=== PATIENT | female | born 1955 | race Caucasian/White ===

== ENCOUNTER 2018-04-01 16:43 | Emergency (ER) | payer SELFPAY ==
[2018-04-01 16:46] VITALS: BP 162/90; PULSE 88; RESP 17; TEMP 36.4; O2SAT 100; BMI 18.5
--- NOTE | 2018-04-01 17:32 | EKG12_ITS ---
Test Reason : DYSRHYTHMIA Blood Pressure : / mmHG Vent. Rate : 081 BPM Atrial Rate : 081 BPM P-R Int : 180 ms QRS Dur : 080 ms QT Int : 442 ms P-R-T Axes : 074 039 059 degrees QTc Int : 513 ms Normal sinus rhythm Prolonged QT Abnormal ECG Confirmed by RADHA KHALIL, ADIN ([id number]), editor in chief QUIANA SILVER ([id number] on 04/04/2018 2:37:02 PM Referred By: MARQUISE Confirmed By:ADIN GARCIA MD
--- NOTE | 2018-04-01 17:33 | ED.VISSUMM ---
- ER Visit Summary Date of Service: 04/01/18 Chief Complaint: Sinus congestion, hand numbness, legs feel wobbly History of Present Illness: The patient is a 62 F who presents with the above symptoms. She has had the symptoms for about a month. She states that she has had a lot of sinus congestion. She feels like she cannot take a deep breath through her nose. It gets better when she is in the air conditioning. Her legs feel wobbly when she tries to stand. She has some numbness in her hands that comes and goes. She tried Sayra, Xyzal and Zyrtec at home but it did not help. She denies fevers. She denies any drainage coming from her nose. No headache. No slurred speech. Physical Examination: Vital signs reviewed. HEENT exam shows swollen turbinates bilaterally. No sinus drainage. Heart is regular rate and rhythm without murmurs. Lungs are clear to auscultation. Abdomen is soft and nontender. Extremities reveal no edema. Skin exam normal. Neurologic exam normal. Test Results: Labs are unremarkable except for a sodium 133 and a creatinine of 1.52 Emergency Department Course and Treatment: The patient may have some sinusitis causing the symptoms. I will treat her with antibiotics and Mucinex D. I am unclear the etiology of her paresthesias. However, her neurologic exam is completely normal. She will follow up with her primary care physician. Treatment Plan: [] Disposition: Discharge Impression: Acute sinusitis This note was generated with Moonf[employer]e dictation software. It may contain incorrect words, spelling, and punctuation that were not noted in review of the chart prior to signing ED Disposition - Plan for ED Patient: Chief Complaint: Dizziness Referrals: Tushar Block MD [Primary Care Provider] -
[2018-04-01 18:07] LABS: Absolute Lymphocyte Count 1.59 X10^3/ul (0.83-4.51); Absolute Neutrophil Count 3.8 X10^3/uL (2.0-7.7); Basophil# 0.04 X10^3/uL; Basophil% 0.6 % (0-1); Eosinophil# 0.34 X10^3/uL; Eosinophils% 4.8 % (0-5); Hemoglobin 12.2 g/dl (12.0-15.0); Lymphocyte # 1.59 X10^3/ul (4.0); Lymphocyte % 22.3 % (19-41); Mean Corp Hgb Conc 34.9 g/gl (32-36); Mean Corpuscular Hgb 33.9 pg (27.0-32.0); Mean Corpuscular Volume 97.2 fL (81-99); Mean Platelet Vol. 9.3 fl (6.2-12.0); Monocyte# 1.34 X10^3/uL; Monocyte% 18.8 % (0-10); Neutrophil % 53.4 % (47-70); Platelet Count 403 K/mm3 (150-450); RBC Distribution Width CV 14.4 % (11.6-14.6); RBC Distribution Width SD 50.6 fl (35.1-43.9); White Blood Count 7.1 K/mm3 (4.4-11.0)
[2018-04-01 18:09] LABS: POSITIVE COUNT NO; POSITIVE DIFFERENTIAL NO; POSITIVE MORPHOLOGY NO
[2018-04-01 18:24] LABS: Anion Gap 9 (5-15); BUN 22 mg/dL (7-18); BUN/Creat Ratio 14.5 RATIO (10-20); Calcium,Total 9.2 mg/dL (8.5-10.1); Chloride 97 mmol/L (98-107); Creatinine, Serum 1.52 mg/dL (0.55-1.02); EST Glomerular Filtration Rate 37 mL/min (>60); Est Glom Filt Rate - Afr Amer 44 mL/min (>60); Estimated Creatinine Clearance 26.27 ml/min; Glucose 98 mg/dL (74-106); Potassium 3.6 mmol/L (3.5-5.1); Sodium Level 133 mmol/L (136-145)
--- NOTE | 2018-04-01 18:37 | ED.DEP ---
ED Disposition - Plan for ED Patient: Disposition: Home or Assisted Living Chief Complaint: Dizziness Instructions: ED Sinusitis Abx Tx Prescriptions: Amox/Clavulanate Tablet [Augmentin Tablet] 875 mg PO Q12H #20 tab Guaifenesin/Pseudoephedrne HCl [Mucinex D ER 1,200-120 mg Tab] 1 ea PO BID #14 [id number] Referrals: Tushar Block MD [Primary Care Provider] -
[2018-04-01] MEDS: Amox/Clavulanate 875 MG Tablet PO (18:44)
== END 2018-04-01 18:47 | disposition home or self-care (01) ==
PROVIDERS: Emergency Provider Emergency Medicine; Family Provider Family Medicine; PCP Family Medicine
DX: J01.90 Acute sinusitis, unspecified (principal); I25.10 Atherosclerotic heart disease of native coronary artery without angina pectoris; I25.2 Old myocardial infarction; G40.909 Epilepsy, unspecified, not intractable, without status epilepticus; Z79.82 Long term (current) use of aspirin; Z79.899 Other long term (current) drug therapy; Z72.0 Tobacco use
CPT/HCPCS: 80048; 85025; 93005; 99283

== ENCOUNTER 2019-07-01 13:14 | Observation (INO) | payer MEDICARE, SELFPAY ==
[2019-07-01] VITALS (9 sets, daily range): BP systolic 121–149; BP diastolic 77–109; PULSE 61–80; RESP 16–18; TEMP 36.6–36.8; O2SAT 96–98; BMI 15.5; BMI 16.3; BMI 16.4
--- NOTE | 2019-07-01 13:35 | EKG12_ITS ---
Test Reason : WEAKNESS Blood Pressure : / mmHG Vent. Rate : 069 BPM Atrial Rate : 069 BPM P-R Int : 170 ms QRS Dur : 068 ms QT Int : 476 ms P-R-T Axes : 082 066 076 degrees QTc Int : 510 ms Normal sinus rhythm Right atrial enlargement Septal infarct , age undetermined Prolonged QT Abnormal ECG Confirmed by RYAN KHALIL, CELESTINE ([id number]), brands editor ABHISHEK ASIF ([id number]) on 07/02/2019 12:10:03 PM Referred By: MR Confirmed By:CELESTINE DAVIS MD
[2019-07-01] MEDS: Aspirin 81 MG TAB.CHEW 324 MG PO (13:53)
--- NOTE | 2019-07-01 13:55 | RAD_ITS ---
STUDY: X-RAY CHEST REASON FOR EXAM: Female, 64 years old. Chest pain. TECHNIQUE: PA and lateral views of the chest. COMPARISON: None. FINDINGS: EKG electrodes are seen. Hyperinflation. Decreased bronchovascular markings in both lungs suggestive of emphysematous changes. Blunting of both costophrenic angles. Normal size heart. Normal mediastinum and gregory. Normal visualized pulmonary arteries. Normal visualized aortic arch and descending thoracic aorta. Normal visualized thoracic spine. Normal visualized ribs, clavicles, and shoulders. There is no demonstrated abnormality of the visualized soft tissue structures of the upper abdomen. RAD/Chest PA and Lateral IMPRESSION: Hyperinflation. Findings suggestive of emphysema. Electronically Signed: Abbe Phillips, at 14:21 EDT , Service support ,
[2019-07-01 13:59] LABS: Absolute Neutrophil Count 4.3 X10^3/uL (2.0-7.7); Basophil# 0.07 X10^3/uL; Basophil% 0.9 % (0-1); Eosinophil# 0.19 X10^3/uL; Eosinophils% 2.5 % (0-5); Hematocrit 39.5 % (37-47); Hemoglobin 13.8 g/dL (12.0-15.0); Lymphocyte % 27.3 % (19-41); Mean Corp Hgb Conc 34.9 g/dL (32-36); Mean Corpuscular Hgb 33.8 pg (27.0-32.0); Mean Corpuscular Volume 96.8 fL (81-99); Mean Platelet Vol. 9.6 fl (6.2-12.0); Monocyte# 0.96 X10^3/uL; Monocyte% 12.5 % (0-10); NRBC Flagged by Analyzer 0 % (0-5); Neutrophil # 4.33 X10^3/uL (2.7-7.7); Neutrophil % 56.4 % (47-70); Platelet Count 412 K/mm3 (150-450); RBC Distribution Width CV 14.5 % (11.6-14.6); RBC Distribution Width SD 51.4 fl (35.1-43.9); Red Blood Count 4.08 M/mm3 (4.2-5.4); White Blood Count 7.7 K/mm3 (4.4-11.0)
[2019-07-01 14:12] LABS: AST(SGOT) 43 U/L (15-37); Alanine Aminotransfer ALT/SGPT 46 U/L (13-56); Albumin, Serum 4.1 g/dL (3.2-5.0); Alkaline Phosphatase 182 U/L (45-117); Bilirubin, Direct 0.11 mg/dL (0.00-0.30); Globulin 4.1 g/dL (2.2-4.2); Protein, Total 8.2 g/dL (6.4-8.2)
[2019-07-01 14:22] LABS: Anion Gap 6 (5-15); BUN 19 mg/dL (7-18); BUN/Creat Ratio 10.5 RATIO (10-20); Calcium,Total 9.2 mg/dL (8.5-10.1); Chloride 94 mmol/L (98-107); Creatinine, Serum 1.81 mg/dL (0.55-1.02); EST Glomerular Filtration Rate 30 mL/min (>60); Est Glom Filt Rate - Afr Amer 36 mL/min (>60); Estimated Creatinine Clearance 21.15 ml/min; Glucose 149 mg/dL (74-106); Potassium 3.2 mmol/L (3.5-5.1); Sodium Level 130 mmol/L (136-145); Thyroid Stim Hormone (TSH) 4.43 uIU/mL (0.358-3.74)
--- NOTE | 2019-07-01 15:00 | NURSING ---
VIDAU OBS YOSSI WRIGHT
--- NOTE | 2019-07-01 15:26 | ED.DCSUM_ITS ---
History of Present Illness Chief Complaint: Weakness Informant: Patient Narrative: Patient presenting for evaluation secondary to weakness and chest pain. Patient states that since yesterday she has been feeling generally ill. She reports that it is a feeling of general weakness, and inability to ambulate or tolerate any sort of activity. She reports my legs feel like Jell-O. She denies any visual changes or numbness. She denies any speech difficulty. She denies any recent fevers nausea vomiting diarrhea. Patient states that today however she was having issues with chest pain and shortness of breath. Patient does have an underlying history of smoking, and had a history of Takusubo back in 2013. Past Medical History - Allergies and Home Meds Allergies/Adverse Reactions: Allergies No Known Allergies Allergy (Verified 07/01/19 13:16) Past Medical History: - - Takusubo Smoking Status: Current every day smoker Review of Systems All systems negative except as indicated General: Reports: Malaise Cardiovascular: Reports: Chest pain Respiratory: Reports: Dyspnea Neurological: Reports: Weakness. Denies: Parasthesia, Numbness Physical Exam Vital Signs/Narrative: Vital Signs Temp Pulse Resp BP Pulse Ox 07/01/19 13:35 97 07/01/19 13:16 97.9 F 80 16 121/86 H 98 07/01/19 13:15 76 18 123/109 H 96 Inital Vital Signs reviewed: Yes General: Cachectic Head: Normocephalic, Atraumatic Eyes: Perrl, EOMI ENT: Moist mucous membranes, - - Pharyngeal changes Neck: Supple, Nontender Cardiovascular: Regular rate, Regular rhythm, No murmurs Respiratory: No distress, CTA bilaterally, Chest nontender Abdomen: Soft, Nontender, Nondistended, Normal bowel sounds Back: Nontender, Normal Inspection Extremities: Nontender, No edema Skin: Normal color, No rash Neurological: Alert, Oriented x3, Cranial nerves II-XII grossly intact, Normal Strength, Normal Sensation, - - NIH 0 Psychological: Normal affect Diagnostic/Tx/Re-eval Chest X-Ray - ED: 2 View, Read by ED Physician, Read by Radiologist, - - Hyperinflation, no evidence of acute pathology - EKG Initial EKG Interpretation: - - Sinus rhythm 69 with some right atrial enlargement, septal Q waves of unknown chronicity, prolonged QTC at 510. Isoelectric ST segments normal T waves. - Medical Decision Making Patient presented secondary to generalized weakness. She also endorsed that she was having chest pain, so work-up was obtained. Troponin found to be negative. EKG shows no signs of acute ischemia. Patient's TSH was trivially elevated. Patient's heart score is at the very least 4, I believe that she requires admission for cardiac rule out. Patient will be admitted on the hospitalist. ED Disposition - Plan for ED Patient: Disposition: Acute Care Hospital [facility] Diagnosis: Chest pain
--- NOTE | 2019-07-01 15:36 | EKG12_ITS ---
Test Reason : ADMISSION EKG Blood Pressure : / mmHG Vent. Rate : 060 BPM Atrial Rate : 060 BPM P-R Int : 150 ms QRS Dur : 076 ms QT Int : 502 ms P-R-T Axes : 066 041 068 degrees QTc Int : 502 ms Normal sinus rhythm Prolonged QT Abnormal ECG When compared with ECG of 01-APR-2018 17:37, No significant change was found Confirmed by KEVIN KHALIL, IVETTE ([id number]), advertising editor ABHISHEK ASIF ([id number]) on 07/08/2019 10:53:38 AM Referred By: KYLE Confirmed By:ROXANNA BROWN MD
--- NOTE | 2019-07-01 15:54 | PCM.HP.STD ---
Problem List (1) Seizure disorder Status: Chronic (2) HTN (hypertension) Status: Chronic (3) Tobacco dependence Status: Chronic (4) Takotsubo cardiomyopathy Status: Chronic History of Present Illness Date of Admission: 07/01/19 Chief Complaint: Shortness of breath, palpitations and lower extremity weakness. The patient is a 64 year old F who presents emergency room due to lower extremity weakness, shortness of breath and palpitations. Patient reports she was unusually tired and slept most of the day yesterday. She reports when she got up this morning her legs felt like Jell-O and she felt like they were going to give out on her upon standing. She then reports she suddenly developed palpitations and chest tightness with associated shortness of breath. At that time she called her primary care physician and states she had difficulty explaining her symptoms due to shortness of breath. She was advised to go to the emergency room for evaluation at that time. She denies unilateral weakness, speech changes, vision changes. She reports over the past 2 days she has had migraines which are chronic for her. She denies numbness and tingling of the extremities. She reports the shortness of breath and palpitations lasted for about 2 hours. She currently denies further lower extremity weakness although reports her symptoms are worse with standing. She has a past medical history of hypertension, hyperlipidemia, tobacco dependence, history of Takotsubo cardiomyopathy and history of seizures. She reports her last seizure was approximately 10 years ago or more. Past Medical History Past Medical History (Chronic Problems): Chronic Problems Seizure disorder (Chronic) HTN (hypertension) (Chronic) Tobacco dependence (Chronic) Takotsubo cardiomyopathy (Chronic) Allergies No Known Allergies Allergy (Verified 07/01/19 13:16) Home Medications: Ambulatory Orders Medication Instructions Recorded Aspirin [Aspirin, Baby] 81 mg PO DAILY@0800 05/05/14 Magnesium Oxide [Mag-Ox 400] 400 mg PO BID 05/05/14 Nitroglycerin (INPATIENT USE) 0.4 mg SUBLINGUAL Q5M PRN #20 05/05/14 [Nitrostat] tablet Amlodipine/Atorvast Valentin [Caduet 5 1 tab PO DAILY 04/01/18 MG-40 MG Tablet] Amitriptyline HCl 50 mg PO QHS 07/01/19 Calcium Citrate/Vitamin D3 1 tab PO BID 07/01/19 [Calcium Citrate - Vit D Caplet] Fluticasone Propionate 1 spray NASAL DAILY PRN PRN 07/01/19 Hydrochlorothiazide 12.5 mg PO DAILY 07/01/19 Metoprolol Succinate [Toprol Xl] 200 mg PO DAILY 07/01/19 Multivit-Min/Iron/Folic/Lutein 1 tab PO DAILY 07/01/19 [Centrum Silver Women Tablet] Phenytoin Na [Dilantin] 100 mg PO DAILY 07/01/19 Phenytoin Sodium Extended 30 mg PO BID 07/01/19 [Dilantin] Sertraline HCl [Zoloft] 50 mg PO DAILY 07/01/19 Surgical History: - - Partial hysterectomy, breast cyst removal. Lives: Spouse/ Significant Other Smoking Status: Current every day smoker Tobacco Use: Secondhand, Cigarettes Alcohol: None Drugs: None - *Family History Maternal History Items: Heart Disease, Stroke Paternal History Items: - - from suicide, unknown medical history including cardiac history. Review of Systems Constitutional: Reports: Weakness. Denies: Chills, Fever, Weight Change HEENT: Reports: Head Aches - Chronic migraines. Denies: Sinus Congestion, Sinus Drainage Cardiovascular: Reports: Chest Pressure, Light Headedness, Palpitations Respiratory: Reports: - - Shortness of breath associated with palpitations. Denies: Cough, Sputum production Gastrointestinal: Denies: Abdominal Pain, Nausea, Vomiting Genitourinary: Reports: Dysuria, Urgency Musculoskeletal: Denies: Joint Pain, Joint Tenderness Skin: Denies: Rash, Wounds Neurological: Denies: Blurred vision, Slurred speech, Confusion, Focal weakness, Numbness, Tingling Psychiatric: Denies: Anxiety, Depression, Homicidal Ideations, Suicidal Ideations Hematologic/ Lymphatic: Denies: Easy Bruising, Easy Bleeding VTE Information - Inpt Only VTE Present on Admission: No VTE Mechan Device Prophylaxis: None VTE Pharm Prophylaxis ordered?: Yes - Physical Exam General: Alert, Oriented x3, Cooperative HEENT: Atraumatic, PERRLA, EOMI, Normocephalic Oral: - - Poor dentition Neck: Supple, No JVD, Negative Carotid Bruits Lungs: Clear to auscultation, Diminished Cardiovascular: Regular rate, Regular Rhythm, Normal S1, Normal S2, No murmurs Abdomen: Bowel Sounds Present, Soft, Non Tender Extremities: No clubbing, No cyanosis, No edema, Capillary Refill Less than 3 Seconds Skin: No rashes, No breakdown Musculoskeletal: No Tenderness to Palpation of Joints or Extremities Neurological: Cranial nerves II-XII grossly intact, Neuro grossly intact Psych/Mental Status: Normal Affect, Appropriate Vital Signs Temp Pulse Resp BP Pulse Ox 97.9 F 80 16 121/86 H 97 07/01/19 13:16 07/01/19 13:16 07/01/19 13:16 07/01/19 13:16 07/01/19 13:35 Oxygen Delivery Method Room Air Weight: 98 lb 5.219 oz Body Mass Index (BMI) 16.3 Laboratory Tests Past 24 Hrs 07/01/19 07/01/19 07/01/19 13:47 13:47 13:47 WBC 7.7 RBC 4.08 L Hgb 13.8 Hct 39.5 MCV 96.8 MCH 33.8 H MCHC 34.9 RDW Std Deviation 51.4 H RDW Coeff of Arden 14.5 Plt Count 412 MPV 9.6 Immature Gran % (Auto) 0.400 Neut % (Auto) 56.4 Lymph % (Auto) 27.3 Cowley % (Auto) 12.5 H Eos % (Auto) 2.5 Baso % (Auto) 0.9 Absolute Neuts (auto) 4.3 Absolute Lymphs (auto) 2.10 Nucleated RBC % 0 Sodium 130 L Potassium 3.2 L Chloride 94 L Carbon Dioxide 30.0 Anion Gap 6 BUN 19 H Creatinine 1.81 H Estim Creat Clear Calc 21.15 Est GFR (MDRD) Af Amer 36 L Est GFR (MDRD) Non-Af 30 L BUN/Creatinine Ratio 10.5 Glucose 149 H Calcium 9.2 Total Bilirubin 0.20 Direct Bilirubin 0.11 AST 43 H ALT 46 Alkaline Phosphatase 182 H Troponin I < 0.015 Total Protein 8.2 Albumin 4.1 Globulin 4.1 TSH 4.43 H Assessment/Plan 1. Palpitations, chest pressure and shortness of breath-EKG without ST-T changes. Initial troponin negative. Trend enzymes. Stress test in a.m. Monitor telemetry. Obtain echo. Check orthostatic vitals. 2. Lower extremity weakness-unclear etiology? Possibly secondary to dehydration/ANTONINO. Check UA given urinary sx. CXR without acute process. Cardiac workup as noted above. No unilateral weakness or other neurologic symptoms or focal deficits. PT/OT. 3. Acute kidney injury on chronic kidney disease stage [id number]-[id number] IV fluids. Repeat BMP in a.m. 4. Hypokalemia-suspect secondary to HCTZ regimen. Replace per protocol. 5. History of Takotsubo cardiomyopathy-echocardiogram May 2014 showed EF 65%. Repeat echo ordered. 6. Hypertension-continue amlodipine, hold HCTZ regimen. 7. Hyperlipidemia-continue statin regimen. 8. Tobacco dependence-encouraged cessation. Declines nicotine patch. 9. Suspected COPD-recommend PFTs as outpatient given long-term tobacco use and chest x-ray with hyperinflation/emphysema. 10. History of seizures-reports she has not had seizure in approximately 10 years. Continue home Dilantin regimen. 11. Elevated TSH-TSH 4.43. Check T4. 12. Moderate protein calorie malnutrition-as evidenced by cachectic appearance, BMI 16.4. Nutrition consult. DVT prophylaxis- heparin sx This patient was seen by DIANNE Salazar under the supervision of Dr. Herron.
--- NOTE | 2019-07-01 16:17 | ECHOD_ITS ---
Reason For Study: Chest Pain Procedure This was a 2D Doppler, Color Flow transthoracic echocardiogram. The study was technically difficult. Exam performed in department. Left Ventricle Normal size and thickness. The estimated ejection fraction is 65 %. Stage 1 diastolic dysfunction. No regional wall motion abnormalities noted. Right Ventricle Normal size and thickness. Normal systolic function. Atria Normal left atrium. Normal right atrium. Normal atrial septum. Bubble contrast study negative for right to left interatrial shunt. Mitral Valve The mitral valve is structurally normal. No prolapse or stenosis seen. Trivial mitral valve insufficiency. Tricuspid Valve Normal tricuspid valve. Trivial tricuspid valve insufficiency. Right ventricular systolic pressure estimated to be 23 mmHg. Pulmonic Valve The pulmonic valve is not well visualized. Great Vessels Normal aortic root. Normal arch. Normal inferior vena cava. Inferior vena cava collapse with sniff. Pericardium/Pleural No pericardial effusion. Medication Performed a rapid injection of agitated mix of 9 cc saline and 1cc air to assess for atrial septal defect. MMode/2D Measurements & Calculations LVIDd: 3.2 cm IVSd: 1.1 cm Ao root diam: 2.8 cm LVIDs: 1.8 cm LVPWd: 1.2 cm RVDd: 3.2 cm FS: 44.5 % LAV(MOD-bp): 25.4 ml LVAd ap4: 16.3 cm2 SV(MOD-sp4): 24.5 ml LAV(MOD-bp) Indexed: 17.4 ml/m2 EDV(MOD-sp4): 33.5 ml LAV(MOD-sp2): 23.1 ml EDV(sp4-el): 35.1 ml LAV(MOD-sp4): 26.6 ml LVAs ap4: 7.3 cm2 ESV(MOD-sp4): 9.1 ml ESV(sp4-el): 8.9 ml EF(MOD-sp4): 73.0 % EF(sp4-el): 74.5 % SV(sp4-el): 26.2 ml LA A4 area: 11.3 cm2 LA dimension(2D): 3.0 cm RA A4 area: 11.2 cm2 Doppler Measurements & Calculations MV E max johnson: 54.7 cm/sec Lat Peak E' Johnson: 4.4 cm/sec Med Peak E' Johnson: 4.8 cm/sec MV A max johnson: 87.9 cm/sec E/E' lat: 12.5 E/E' med: 11.3 MV E/A: 0.62 Ao V2 max: 122.5 cm/sec LV V1 max: 80.5 cm/sec PA V2 max: 84.7 cm/sec Ao max P.0 mmHg LV V1 max P.6 mmHg Ao V2 mean: 97.2 cm/sec Ao mean P.0 mmHg Ao V2 VTI: 29.0 cm TR max johnson: 210.3 cm/sec TR max P.7 mmHg Interpretation Summary The estimated ejection fraction is 65 %. Stage 1 diastolic dysfunction. Bubble contrast study negative for right to left interatrial shunt. Trivial mitral valve insufficiency. Trivial tricuspid valve insufficiency. Right ventricular systolic pressure estimated to be 23 mmHg. Compared to echo report dated 05/22/2014, no appreciable changes noted. Ordering Physician: Gavin Herron Referring Physician: Tushar Block Performed By: Niharika Merritt, TERRY, RVT
[2019-07-01 17:04] LABS: T4 Free Direct 0.66 ng/dL (0.76-1.46)
[2019-07-01] MEDS: 0.9% Normal Saline 1,000 ML 125 ML IV (18:35)
[2019-07-01] MEDS: Magnesium Oxide 400 MG Tablet PO (18:35)
[2019-07-01] MEDS: 0.9% NaCl Peripheral Flush Adult/Peds IV (18:36)
[2019-07-01] MEDS: Heparin Injection (Vial) 5,000 UNIT/ML VIAL 5000 UNIT SC (22:28)
[2019-07-01] MEDS: Phenytoin Na 100 MG Capsule PO (22:28)
[2019-07-01] MEDS: Amitriptyline 25 MG Tablet 50 MG PO (22:28)
[2019-07-02 02:29] LABS: Mucous, Urine 0 SEEN /hpf (<or=2+)
[2019-07-02 02:33] LABS: Color, Urine Yellow (Yellow); Glucose, Dipstick Normal (Normal); Ketone-Dipstick 5 mg/dl (Negative); Leukocyte Esterase-Dipstick 500 /ul (Negative); Nitrite-Dipstick Positive (Negative); Occult Blood-Urine 50 /ul (Negative); Protein-Dipstick 30 mg/dl (Negative); Urine Bilirubin Dipstick Negative (Negative); Urine Clarity Cloudy (Clear); Urine Urobilinogen Normal (Normal)
[2019-07-02 02:39] LABS: Squamous Epithelial Cells - UA 5-10 SEEN /hpf (5-10)
[2019-07-02] MEDS: 0.9% Normal Saline 1,000 ML 125 ML IV (02:39)
[2019-07-02 02:40] LABS: Bacteria 3+ /hpf (None Seen); Red Blood Cells-Urine 0-5 SEEN /hpf (0-5); White Blood Cells >100 SEEN /hpf (0-5)
[2019-07-02 02:59] VITALS: PULSE 63
[2019-07-02 03:55] VITALS: BP 123/72; PULSE 73; RESP 16; TEMP 36.8; O2SAT 95
--- NOTE | 2019-07-02 05:55 | EKG12_ITS ---
Test Reason : A.M. EKG Blood Pressure : / mmHG Vent. Rate : 069 BPM Atrial Rate : 069 BPM P-R Int : 154 ms QRS Dur : 074 ms QT Int : 454 ms P-R-T Axes : 065 057 068 degrees QTc Int : 486 ms Normal sinus rhythm Normal ECG When compared with ECG of 01-JUL-2019 15:55, MANUAL COMPARISON REQUIRED, DATA IS UNCONFIRMED Confirmed by KEVIN KHALIL, IVETTE ([id number]), crystal grower ABHISHEK ASIF ([id number]) on 07/08/2019 10:55:21 AM Referred By: MICHELLE Confirmed By:ROXANNA BROWN MD
[2019-07-02 06:23] VITALS: BP 147/94; BP 163/85; BP 167/101; PULSE 77; PULSE 79; PULSE 80
[2019-07-02] MEDS: Aspirin 81 MG TAB.CHEW PO (06:32)
[2019-07-02 06:49] LABS: Anion Gap 7 (5-15); BUN 15 mg/dL (7-18); BUN/Creat Ratio 14.9 RATIO (10-20); Calcium,Total 8.1 mg/dL (8.5-10.1); Chloride 105 mmol/L (98-107); Creatinine, Serum 1.01 mg/dL (0.55-1.02); EST Glomerular Filtration Rate 58 mL/min (>60); Est Glom Filt Rate - Afr Amer 71 mL/min (>60); Estimated Creatinine Clearance 38.58 ml/min; Glucose 82 mg/dL (74-106); Potassium 3.4 mmol/L (3.5-5.1); Sodium Level 138 mmol/L (136-145)
[2019-07-02 07:45] VITALS: PULSE 65
[2019-07-02 09:55] VITALS: BP 166/94; PULSE 58; RESP 18; TEMP 36.6; O2SAT 97
[2019-07-02] MEDS: Sertraline 50 MG Tablet PO (10:38)
[2019-07-02] MEDS: Atorvastatin Calcium 40 MG Tablet PO (10:38)
[2019-07-02] MEDS: amLODIPine 5 MG Tablet PO ×2 (10:39→12:12)
[2019-07-02] MEDS: Magnesium Oxide 400 MG Tablet PO (10:39)
--- NOTE | 2019-07-02 10:52 | STRESSREP_ITS ---
Stress Test Report Date: 07-02-19 Procedure: Pharmacologic stress nuclear imaging study Indications: Chest pain; cardiomyopathy Consent: Per the patient Procedure: The patient underwent pharmacologic (Regadenoson) evaluation with a peak heart rate of 100 beats per minute (64 %predicted maximal heart rate) and a peak blood pressure of 190/94 mmHg. The baseline ECG demonstrated normal sinus rhythm; anteroseptal LA of indeterminate age cannot be excluded. The peak pharmacologic ECG demonstrated no obvious ECG changes. There were no cardiac dysrhythmias pretest, during pharmacologic infusion, or recovery. There was no complaint of chest discomfort during pharmacologic infusion or recovery. The examination was discontinued secondary to completion of protocol. Impression: 1. Pharmacologic (Regadenoson) evaluation 2. Peak pharmacologic ECG with no obvious ECG changes. 3. There were no cardiac dysrhythmias pretest, during pharmacologic infusion, or recovery. 4. Nuclear images pending Myocardial perfusion imaging study: Technique: The patient was injected with 12.0 millicuries of technetium 99m Cardiolite and subsequently rest SPECT Cardiolite nuclear imaging was obtained in the horizontal long, vertical long, and short axis views. The patient underwent pharmacologic (Regadenoson) evaluation with a peak heart rate of 100 beats per minute (64 % percent predicted maximal heart rate) and a peak blood pressure of 190/94 mmHg. The patient was injected with 36.0 millicuries of technetium 99m Cardiolite and subsequently stress SPECT Cardiolite nuclear imaging was obtained in the horizontal long, vertical long, and short axis views. A gated Cardiolite study at peak stress was obtained. Interpretation: Rest and stress SPECT Cardiolite nuclear imaging status post realignment, normalization, and attenuation correction demonstrate relative uniform tracer uptake and myocardial perfusion appearing within normal limits. There is end systolic thickening and brightening. The gated Cardiolite study demonstrates myocardial thickening and inward wall motion. The reported LVEF is 84 %. Impression: 1. Rest and stress SPECT Cardiolite nuclear imaging demonstrate relative uniform tracer uptake and myocardial perfusion appearing within normal limits. 2. The gated Cardiolite study reports an LVEF of 84 %. This note was generated with travelmobation software. It may contain incorrect words, spelling, and punctuation that were not noted in checking the note before signing.
--- NOTE | 2019-07-02 11:57 | PCM.DC ---
- Discharge Diagnoses Current Active Problems: Current Active and Chronic Problems Seizure disorder (Chronic) HTN (hypertension) (Chronic) Tobacco dependence (Chronic) Takotsubo cardiomyopathy (Chronic) You will use the following diet at home:: No restrictions Discharge Activity: Return to Normal Activity Call your doctor if you observe: Shortness of breath, Dizziness, Fainting spells, Chest pain Allergies/Adverse Reactions: Allergies No Known Allergies Allergy (Verified 07/01/19 13:16) Medications to take at Discharge Aspirin [Aspirin, Baby] 81 mg PO DAILY@0800 05/05/14 Magnesium Oxide [Mag-Ox 400] 400 mg PO BID 05/05/14 Nitroglycerin (INPATIENT USE) [Nitrostat] 0.4 mg SUBLINGUAL Q5M PRN #20 tablet 05/05/14 Amitriptyline HCl 50 mg PO QHS 07/01/19 Calcium Citrate/Vitamin D3 [Calcium Citrate - Vit D Caplet] 1 tab PO BID 07/01/19 Fluticasone Propionate 1 spray NASAL DAILY PRN PRN 07/01/19 Metoprolol Succinate [Toprol Xl] 200 mg PO DAILY 07/01/19 Multivit-Min/Iron/Folic/Lutein [Centrum Silver Women Tablet] 1 tab PO DAILY 07/01/19 Sertraline HCl [Zoloft] 50 mg PO DAILY 07/01/19 Amlodipine/Atorvastatin [Caduet 10 mg-40 mg Tablet] 1 ea PO DAILY #30 tab 07/02/19 Phenytoin Na [Dilantin] 100 mg PO 1200 capsule 07/02/19 Phenytoin Na [Dilantin] 130 mg PO 0700,1700 capsule 07/02/19 The following prescriptions were given: Amlodipine/Atorvastatin [Caduet 10 mg-40 mg Tablet] 1 ea PO DAILY #30 tab Transmission Status: Pending to [id number] Primary Care Physician: Tushar Block MD [Primary Care Provider] - Please follow up with your Primary Care Physician in: 1 Week Test Results: Test results from this visit will be discussed in further detail at your follow-up appointment, if applicable. Please Follow Up With: Delonte Zayas MD When: 2-4 weeks for routine cardiology follow up Proposed Discharge Date: 07/02/19
[2019-07-02 12:10] VITALS: BP 156/89
--- NOTE | 2019-07-02 12:41 | PCM.DC.SUM ---
<Yany Rosa - Last Filed: 07/02/19 12:54> Discharge Date and Diagnosis Date of Admission: 07/01/19 Date of Discharge: 07/02/19 - Primary Discharge Diagnosis 1. Palpitations, chest pressure and shortness of breath-ACS ruled out. 2. Lower extremity weakness-suspect secondary to dehydration. 3. Acute kidney injury on chronic kidney disease stage II-III 4. Hypokalemia 5. History of Takotsubo cardiomyopathy 6. Hypertension 7. Hyperlipidemia 8. Tobacco dependence 9. Suspected COPD 10. History of seizures 11. Elevated TSH 12. Moderate protein calorie malnutrition - Secondary Discharge Diagnosis Chronic Problems Seizure disorder (Chronic) HTN (hypertension) (Chronic) Tobacco dependence (Chronic) Takotsubo cardiomyopathy (Chronic) Hospital Course and Treatment Imaging Results: Diagnostic Data Chest X-Ray 07/01/19 13:55 IMPRESSION: Hyperinflation. Findings suggestive of emphysema. Electronically Signed: Abbe Alan, at 14:21 EDT , Service support , Operations: None Procedures: 2-D Echocardiogram, Stress test Summary of Care Provided: The patient is a 64 year old F admitted 07/01/2018 due to shortness of breath, palpitations and lower extremity weakness. 1. Palpitations, chest pressure and shortness of breath-EKG without ST-T changes. Troponin negative. Stress test without evidence of ischemia. Orthostatic vitals negative. Echocardiogram demonstrated an EF of 65%, stage I diastolic dysfunction. Presenting symptoms have not returned. ACS ruled out. Follow-up with primary care provider in 1 week. 2. Lower extremity weakness-suspect secondary to dehydration/ANTONINO. CXR without acute process. Cardiac workup as noted above. No unilateral weakness or other neurologic symptoms or focal deficits. Symptoms improved with hydration and discontinuation of HCTZ. 3. Acute kidney injury on chronic kidney disease stage II-III-ANTONINO resolved with fluids. 4. Hypokalemia-suspect secondary to HCTZ regimen. Replaced per protocol. 5. Asymptomatic bacteriuria-urinalysis with 3+ bacteria, greater than 100 WBC and positive nitrate. Patient denies symptoms currently. Culture pending at discharge. Will not start antibiotic regimen at this time however if patient develops symptoms or culture significance, recommend initiating antibiotic regimen. Will follow culture. 6. History of Takotsubo cardiomyopathy-echocardiogram May 2014 showed EF 65%. Repeat echo unchanged as noted above. 7. Hypertension-continue amlodipine, HCTZ discontinued. Increased home amlodipine/statin regimen to amlodipine 10 mg daily. 8. Hyperlipidemia-continue statin regimen. 9. Tobacco dependence-encouraged cessation. Declines nicotine patch. 10. Suspected COPD-recommend PFTs as outpatient given long-term tobacco use and chest x-ray with hyperinflation/emphysema. Recommend referral by primary care physician to pulmonary medicine. 11. History of seizures-reports she has not had seizure in approximately 10 years. Continue home Dilantin regimen. 12. Elevated TSH-TSH 4.43. T4 .66. Recommend repeat in 4 weeks by PCP, if still abnormal recommend beginning regimen at that time. 13. Moderate protein calorie malnutrition-as evidenced by cachectic appearance, BMI 16.4. Nutrition consult. General: Alert, Oriented x3, Cooperative HEENT: Atraumatic, PERRLA, EOMI, Normocephalic Oral: - - Poor dentition Neck: Supple, No JVD, Negative Carotid Bruits Lungs: Clear to auscultation, Diminished Cardiovascular: Regular rate, Regular Rhythm, Normal S1, Normal S2, No murmurs Abdomen: Bowel Sounds Present, Soft, Non Tender Extremities: No clubbing, No cyanosis, No edema, Capillary Refill Less than 3 Seconds Skin: No rashes, No breakdown Musculoskeletal: No Tenderness to Palpation of Joints or Extremities Neurological: Cranial nerves II-XII grossly intact, Neuro grossly intact Psych/Mental Status: Normal Affect, Appropriate Patient seen and examined prior to discharge. Physical assessment as noted above. Patient is stable for discharge with follow up recommendations as noted above. This patient was seen by DIANNE Salazar under the supervision of Dr. Oropeza. - Physical Exam Vital Signs Temp Pulse Resp BP Pulse Ox 97.9 F 58 L 18 156/89 H 97 07/02/19 09:55 07/02/19 09:55 07/02/19 09:55 07/02/19 12:10 07/02/19 09:55 Oxygen Delivery Method Room Air Weight: 98 lb 5.219 oz Body Mass Index (BMI) 16.3 Orthostatic Vital Signs Start: 07/01/19 16:47 Freq: 0600 Status: Active Protocol: Activity Type Activity Date Activity User E-Sign Co-Sign Detail Recorded Client Recorded Date Recorded By Document 07/02/19 06:23 BS [id number] 07/02/19 06:30 BS 07/02/19 06:23 Orthostatic Vitals Standing -Blood Pressure (90/60-120/80) 167/101 H -Extremity Use Left Arm -Pulse Rate (60-100) 80 Sitting -Blood Pressure (90/60-120/80) 163/85 H -Extremity Use Left Arm -Pulse Rate (60-100) 77 Lying -Blood Pressure (90/60-120/80) 147/94 H -Extremity Use Left Arm -Pulse Rate (60-100) 79 Intake and Output for Last 24 Hours 06/30/19 07/01/19 07/02/19 23:59 23:59 23:59 Intake Total 1145 / 1145 1421.25 / 1421.25 Balance 1145 / 1145 1421.25 / 1421.25 Laboratory Tests Past 24 Hrs 07/01/19 07/01/19 07/01/19 13:47 13:47 13:47 WBC 7.7 RBC 4.08 L Hgb 13.8 Hct 39.5 MCV 96.8 MCH 33.8 H MCHC 34.9 RDW Std Deviation 51.4 H RDW Coeff of [place] 14.5 Plt Count 412 MPV 9.6 Immature Gran % (Auto) 0.400 Neut % (Auto) 56.4 Lymph % (Auto) 27.3 [place] % (Auto) 12.5 H Eos % (Auto) 2.5 Baso % (Auto) 0.9 Absolute Neuts (auto) 4.3 Absolute Lymphs (auto) 2.10 Nucleated RBC % 0 Sodium 130 L Potassium 3.2 L Chloride 94 L Carbon Dioxide 30.0 Anion Gap 6 BUN 19 H Creatinine 1.81 H Estim Creat Clear Calc 21.15 Est GFR (MDRD) Af Amer 36 L Est GFR (MDRD) Non-Af 30 L BUN/Creatinine Ratio 10.5 Glucose 149 H Calcium 9.2 Total Bilirubin 0.20 Direct Bilirubin 0.11 AST 43 H ALT 46 Alkaline Phosphatase 182 H Troponin I < 0.015 Total Protein 8.2 Albumin 4.1 Globulin 4.1 TSH 4.43 H Free T4 Urine Color Urine Clarity Urine pH Ur Specific [place] Urine Protein Urine Glucose (UA) Urine Ketones Urine Occult Blood Urine Nitrite Urine Bilirubin Urine Urobilinogen Ur Leukocyte Esterase Urine RBC Urine WBC Ur Squamous Epith Cells Urine Bacteria Urine Mucus 07/01/19 07/01/19 07/01/19 16:20 16:20 19:50 WBC RBC Hgb Hct MCV MCH MCHC RDW Std Deviation RDW Coeff of [place] Plt Count MPV Immature Gran % (Auto) Neut % (Auto) Lymph % (Auto) [place] % (Auto) Eos % (Auto) Baso % (Auto) Absolute Neuts (auto) Absolute Lymphs (auto) Nucleated RBC % Sodium Potassium Chloride Carbon Dioxide Anion Gap BUN Creatinine Estim Creat Clear Calc Est GFR (MDRD) Af Amer Est GFR (MDRD) Non-Af BUN/Creatinine Ratio Glucose Calcium Total Bilirubin Direct Bilirubin AST ALT Alkaline Phosphatase Troponin I < 0.015 < 0.015 Total Protein Albumin Globulin TSH Free T4 0.66 L Urine Color Urine Clarity Urine pH Ur Specific [place] Urine Protein Urine Glucose (UA) Urine Ketones Urine Occult Blood Urine Nitrite Urine Bilirubin Urine Urobilinogen Ur Leukocyte Esterase Urine RBC Urine WBC Ur Squamous Epith Cells Urine Bacteria Urine Mucus 07/02/19 07/02/19 01:55 06:00 WBC RBC Hgb Hct MCV MCH MCHC RDW Std Deviation RDW Coeff of [place] Plt Count MPV Immature Gran % (Auto) Neut % (Auto) Lymph % (Auto) [place] % (Auto) Eos % (Auto) Baso % (Auto) Absolute Neuts (auto) Absolute Lymphs (auto) Nucleated RBC % Sodium 138 Potassium 3.4 L Chloride 105 Carbon Dioxide 26.0 Anion Gap 7 BUN 15 Creatinine 1.01 Estim Creat Clear Calc 38.58 Est GFR (MDRD) Af Amer 71 Est GFR (MDRD) Non-Af 58 L BUN/Creatinine Ratio 14.9 Glucose 82 Calcium 8.1 L Total Bilirubin Direct Bilirubin AST ALT Alkaline Phosphatase Troponin I Total Protein Albumin Globulin TSH Free T4 Urine Color Yellow Urine Clarity Cloudy Urine pH 7.0 Ur Specific [place] 1.010 Urine Protein 30 H Urine Glucose (UA) Normal Urine Ketones 5 H Urine Occult Blood 50 H Urine Nitrite Positive H Urine Bilirubin Negative Urine Urobilinogen Normal Ur Leukocyte Esterase 500 H Urine RBC 0-5 SEEN Urine WBC >100 SEEN Ur Squamous Epith Cells 5-10 SEEN Urine Bacteria 3+ Urine Mucus 0 SEEN Discharge Diet: No Restrictions Discharge Activity: Return to Normal Activity Call your doctor if you observe: Shortness of breath, Dizziness, Fainting spells, Chest pain Home Medications: Medications to take at Discharge Aspirin [Aspirin, Baby] 81 mg PO DAILY@0800 05/05/14 Magnesium Oxide [Mag-Ox 400] 400 mg PO BID 05/05/14 Nitroglycerin (INPATIENT USE) [Nitrostat] 0.4 mg SUBLINGUAL Q5M PRN #20 tablet 05/05/14 Amitriptyline HCl 50 mg PO QHS 07/01/19 Calcium Citrate/Vitamin D3 [Calcium Citrate - Vit D Caplet] 1 tab PO BID 07/01/19 Fluticasone Propionate 1 spray NASAL DAILY PRN PRN 07/01/19 Metoprolol Succinate [Toprol Xl] 200 mg PO DAILY 07/01/19 Multivit-Min/Iron/Folic/Lutein [Centrum Silver Women Tablet] 1 tab PO DAILY 07/01/19 Sertraline HCl [Zoloft] 50 mg PO DAILY 07/01/19 Amlodipine/Atorvastatin [Caduet 10 mg-40 mg Tablet] 1 ea PO DAILY #30 tab 07/02/19 Phenytoin Na [Dilantin] 100 mg PO 1200 cap 07/02/19 Phenytoin Na [Dilantin] 130 mg PO 0700,1700 cap 07/02/19 Following Prescrptions Were Given to Patient: Amlodipine/Atorvastatin [Caduet 10 mg-40 mg Tablet] 1 ea PO DAILY #30 tab Transmission Status: Received by [id number] Primary Care Physician: Tushar Block MD [Primary Care Provider] - Please follow up with your Primary Care Physician in: 1 Week Please Follow Up With: Delonte Zayas MD When: 2-4 weeks for routine cardiology follow up Disposition: Home Minutes spent on discharge:: 35 Patient Condition:: Stable Medical Necessity - Tobacco Use Smoking Status: Current every day smoker Tobacco Use: Secondhand, Cigarettes Meaningful Use Info Meaningful Use Diagnoses (Choose all that apply): None applicable <Arvind Oropeza - Last Filed: 07/02/19 13:02> Discharge Date and Diagnosis - Secondary Discharge Diagnosis Chronic Problems Seizure disorder (Chronic) HTN (hypertension) (Chronic) Tobacco dependence (Chronic) Takotsubo cardiomyopathy (Chronic) Hospital Course and Treatment Imaging Results: 07/02/19 05:55 Nuclear Stress Test - Chemical [NM] AM (NON MEDS) Summary of Care Provided: The patient is a 64 year old F [] - Physical Exam Vital Signs Temp Pulse Resp BP Pulse Ox 97.9 F 58 L 18 156/89 H 97 07/02/19 09:55 07/02/19 09:55 07/02/19 09:55 07/02/19 12:10 07/02/19 09:55 Oxygen Delivery Method Room Air Weight: 98 lb 5.219 oz Body Mass Index (BMI) 16.3 Orthostatic Vital Signs Start: 07/01/19 16:47 Freq: 0600 Status: Active Protocol: Activity Type Activity Date Activity User E-Sign Co-Sign Detail Recorded Client Recorded Date Recorded By Document 07/02/19 06:23 BS [id number] 07/02/19 06:30 BS 07/02/19 06:23 Orthostatic Vitals Standing -Blood Pressure (90/60-120/80) 167/101 H -Extremity Use Left Arm -Pulse Rate (60-100) 80 Sitting -Blood Pressure (90/60-120/80) 163/85 H -Extremity Use Left Arm -Pulse Rate (60-100) 77 Lying -Blood Pressure (90/60-120/80) 147/94 H -Extremity Use Left Arm -Pulse Rate (60-100) 79 Intake and Output for Last 24 Hours 06/30/19 07/01/19 07/02/19 23:59 23:59 23:59 Intake Total 1145 / 1145 1421.25 / 1421.25 Balance 1145 / 1145 1421.25 / 1421.25 Laboratory Tests Past 24 Hrs 07/01/19 07/01/19 07/01/19 13:47 13:47 13:47 WBC 7.7 RBC 4.08 L Hgb 13.8 Hct 39.5 MCV 96.8 MCH 33.8 H MCHC 34.9 RDW Std Deviation 51.4 H RDW Coeff of [place] 14.5 Plt Count 412 MPV 9.6 Immature Gran % (Auto) 0.400 Neut % (Auto) 56.4 Lymph % (Auto) 27.3 [place] % (Auto) 12.5 H Eos % (Auto) 2.5 Baso % (Auto) 0.9 Absolute Neuts (auto) 4.3 Absolute Lymphs (auto) 2.10 Nucleated RBC % 0 Sodium 130 L Potassium 3.2 L Chloride 94 L Carbon Dioxide 30.0 Anion Gap 6 BUN 19 H Creatinine 1.81 H Estim Creat Clear Calc 21.15 Est GFR (MDRD) Af Amer 36 L Est GFR (MDRD) Non-Af 30 L BUN/Creatinine Ratio 10.5 Glucose 149 H Calcium 9.2 Total Bilirubin 0.20 Direct Bilirubin 0.11 AST 43 H ALT 46 Alkaline Phosphatase 182 H Troponin I < 0.015 Total Protein 8.2 Albumin 4.1 Globulin 4.1 TSH 4.43 H Free T4 Urine Color Urine Clarity Urine pH Ur Specific [place] Urine Protein Urine Glucose (UA) Urine Ketones Urine Occult Blood Urine Nitrite Urine Bilirubin Urine Urobilinogen Ur Leukocyte Esterase Urine RBC Urine WBC Ur Squamous Epith Cells Urine Bacteria Urine Mucus 07/01/19 07/01/19 07/01/19 16:20 16:20 19:50 WBC RBC Hgb Hct MCV MCH MCHC RDW Std Deviation RDW Coeff of [place] Plt Count MPV Immature Gran % (Auto) Neut % (Auto) Lymph % (Auto) [place] % (Auto) Eos % (Auto) Baso % (Auto) Absolute Neuts (auto) Absolute Lymphs (auto) Nucleated RBC % Sodium Potassium Chloride Carbon Dioxide Anion Gap BUN Creatinine Estim Creat Clear Calc Est GFR (MDRD) Af Amer Est GFR (MDRD) Non-Af BUN/Creatinine Ratio Glucose Calcium Total Bilirubin Direct Bilirubin AST ALT Alkaline Phosphatase Troponin I < 0.015 < 0.015 Total Protein Albumin Globulin TSH Free T4 0.66 L Urine Color Urine Clarity Urine pH Ur Specific [place] Urine Protein Urine Glucose (UA) Urine Ketones Urine Occult Blood Urine Nitrite Urine Bilirubin Urine Urobilinogen Ur Leukocyte Esterase Urine RBC Urine WBC Ur Squamous Epith Cells Urine Bacteria Urine Mucus 07/02/19 07/02/19 01:55 06:00 WBC RBC Hgb Hct MCV MCH MCHC RDW Std Deviation RDW Coeff of [place] Plt Count MPV Immature Gran % (Auto) Neut % (Auto) Lymph % (Auto) [place] % (Auto) Eos % (Auto) Baso % (Auto) Absolute Neuts (auto) Absolute Lymphs (auto) Nucleated RBC % Sodium 138 Potassium 3.4 L Chloride 105 Carbon Dioxide 26.0 Anion Gap 7 BUN 15 Creatinine 1.01 Estim Creat Clear Calc 38.58 Est GFR (MDRD) Af Amer 71 Est GFR (MDRD) Non-Af 58 L BUN/Creatinine Ratio 14.9 Glucose 82 Calcium 8.1 L Total Bilirubin Direct Bilirubin AST ALT Alkaline Phosphatase Troponin I Total Protein Albumin Globulin TSH Free T4 Urine Color Yellow Urine Clarity Cloudy Urine pH 7.0 Ur Specific [place] 1.010 Urine Protein 30 H Urine Glucose (UA) Normal Urine Ketones 5 H Urine Occult Blood 50 H Urine Nitrite Positive H Urine Bilirubin Negative Urine Urobilinogen Normal Ur Leukocyte Esterase 500 H Urine RBC 0-5 SEEN Urine WBC >100 SEEN Ur Squamous Epith Cells 5-10 SEEN Urine Bacteria 3+ Urine Mucus 0 SEEN Code Visit Addendum: Dr. Oropeza I personally examined the patient and reviewed the chart. I agree with the above. 4-year-old female with a history of high blood pressure and cholesterol presents with chest pain. She underwent a stress test today which was normal and she states that her chest pain is resolved and at this point feels so good that she wonders why she is even here, compared to when she came in yesterday. Blood pressure was elevated into the 160s and her Norvasc was increased from 5 to 10 mg and she will need to have outpatient follow-up for this. In discussing her case with her, she states that she was recently started on hydrochlorothiazide and we discussed that if she had an increase her fluid intake then her lower extremity weakness could be related to dehydration, and now that she received some IV fluids that is probably why she is feeling better. She will once again follow-up with her primary care doc for this and her borderline TSH which should be repeated as an outpatient. OBSV E&M: [id number] Observation care discharge
--- NOTE | 2019-07-02 12:56 | CHAPLAIN ---
Type of Pastoral Visit _x__ Initial Visit ___ Follow-up Visit ___ On-call Visit ___ General Patient Visit ___ Spiritual Assessment ___ Family Conference ___ Bereavement ___ Rapid Response ___ Code Blue ___ Other (describe below) Pastoral Care Referral From _x__ Patient ___ Family ___ Nurse ___ Physician ___ Real Estate Rental Agent ___ Overhead Garage Door Hanger ___ Other (describe below) Sacrament/Intervention _x__ Active listening ___ Anointing ___ Jain ___ Bereavement ___ Communion ___ Denia exploration ___ _x__ Life review _x__ Prayer ___ Reconciliation ___ Sacrament of Sick ___ Supportive presence ___ Wedding ___ Other (describe below) Pastoral Comments
== END 2019-07-02 11:57 | disposition home or self-care (01) ==
LOC: ED 13:40 → PCU 16:01
PROVIDERS: Nurse Practitioner Family; Admitting Provider Internal Medicine; Emergency Provider Emergency Medicine; Family Provider Family Medicine; PCP Family Medicine; Visit Provider Family Medicine
DX: R00.2 Palpitations (principal); R06.02 Shortness of breath; R07.89 Other chest pain; N17.9 Acute kidney failure, unspecified; I12.9 Hypertensive chronic kidney disease with stage 1 through stage 4 chronic kidney disease, or unspecified chronic kidney disease; E78.5 Hyperlipidemia, unspecified; N18.3 Chronic kidney disease, stage 3 (moderate); E44.0 Moderate protein-calorie malnutrition; F17.210 Nicotine dependence, cigarettes, uncomplicated; G40.909 Epilepsy, unspecified, not intractable, without status epilepticus; I08.1 Rheumatic disorders of both mitral and tricuspid valves; E87.6 Hypokalemia; R94.6 Abnormal results of thyroid function studies; Z68.1 Body mass index [BMI] 19.9 or less, adult; Z79.899 Other long term (current) drug therapy; Z79.82 Long term (current) use of aspirin
CPT/HCPCS: 36415; 71046; 78452; 80048; 80076; 81001; 84439; 84443; 84484; 85025; 87077; 87086; 87088; 87186; 93005; 93017; 93306; 96360; 96361; 96372; 99218; 99285; A9500; J7030; A4216; G0378; J2785

== ENCOUNTER 2019-11-26 09:46 | Outpatient (RCR) | payer MEDICARE, SELFPAY ==
[2019-07-25 09:36] VITALS: BMI 17.3
[2019-11-26 10:29] VITALS: BP 145/56; PULSE 70; RESP 18; TEMP 36.8; BMI 18.3
--- NOTE | 2019-11-26 13:24 | PCM.CONHBO ---
(1) Inflammatory conditions of jaws Status: Acute Current Visit: Yes Code(s): M27.2 - Inflammatory conditions of jaws (2) Seizure disorder Status: Chronic Current Visit: No Code(s): G40.909 - Epilepsy, unspecified, not intractable, without status epilepticus (3) Takotsubo cardiomyopathy Status: Chronic Current Visit: No Code(s): I51.81 - Takotsubo syndrome (4) Tobacco dependence Status: Chronic Current Visit: No Code(s): F17.200 - Nicotine dependence, unspecified, uncomplicated (5) Other specified diseases of jaws Status: Acute Current Visit: Yes Code(s): M27.8 - Other specified diseases of jaws History of Present Illness Date of Service: 11/26/19 Presenting Chief Complaint: HBO consult for radiation to her jaw approximately 7 to 8 years ago The patient is a 64 year old F who [facility] the possibility of initiating hyperbaric oxygen therapy for treatment of inflammatory conditions of the jaw and other unspecified diseases of the jaw. Patient received radiation approximately 7 to 8 years ago. 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 Patient is a smoker and is discussing cold turkey to stop smoking on her own was offered patches or Chantix but Chantix is too expensive at this time. Patient does have a seizure disorder that is well controlled with her medication phenytoin. Patient will be having 30 treatments to start at EILEEN 2.5 with 2 air breaks and after that they are would like to pull her teeth that have become necrotic in her mouth from the radiation. Patient then will proceed for another 10 more treatments at EILEEN 2.5 with 2 air breaks. Patient is aware. [] Past Medical History Chronic Problems (Last Reviewed 07/25/19 @ 09:41 by Laura Chapman) Mixed hyperlipidemia (Chronic) Essential hypertension (Chronic) Seizure disorder (Chronic) Tobacco dependence (Chronic) Takotsubo cardiomyopathy (Chronic) Allergies/Adverse Reactions: Allergies No Known Allergies Allergy (Verified 07/25/19 09:36) Home Medications: Ambulatory Orders Medication Instructions Recorded Aspirin [Aspirin, Baby] 81 mg PO DAILY@0800 05/05/14 Magnesium Oxide [Mag-Ox 400] 400 mg PO BID 05/05/14 Nitroglycerin (INPATIENT USE) 0.4 mg SUBLINGUAL Q5M PRN #20 tab 05/05/14 [Nitrostat] Amitriptyline HCl 50 mg PO QHS 07/01/19 Calcium Citrate/Vitamin D3 1 tab PO BID 07/01/19 [Calcium Citrate - Vit D Caplet] Fluticasone Propionate 1 spray NASAL DAILY PRN PRN 07/01/19 Metoprolol Succinate [Toprol Xl] 200 mg PO DAILY 07/01/19 Multivit-Min/Iron/Folic/Lutein 1 tab PO DAILY 07/01/19 [Centrum Silver Women Tablet] Sertraline HCl [Zoloft] 50 mg PO DAILY 07/01/19 Amlodipine/Atorvastatin [Caduet 10 1 ea PO DAILY #30 tab 07/02/19 mg-40 mg Tablet] levothyroxine 25 mcg tablet 25 mcg PO DAILY 07/25/19 phenytoin sodium extended 100 mg 100 mg PO TID cap 07/25/19 capsule phenytoin sodium extended 30 mg 30 mg PO BID cap 07/25/19 capsule Tolterodine Tartrate [Detrol LA] 2 mg PO BID 11/26/19 Maternal Family History: Family History (Last Reviewed 07/25/19 @ 09:41 by Laura Chapman) Mother Heart disease Family History: Heart Disease, Stroke Paternal Family History: Family History (Last Reviewed 07/25/19 @ 09:41 by Laura Chapman) Mother Heart disease Family History: - - from suicide, unknown medical history including cardiac history. Smoking Status: Heavy Smoker (>10/day) Review of Systems Constitutional: Denies: Chills, Fever Eyes: Denies: Blurred vision, Drainage, Pain HEENT: Denies: Difficulty Hearing, Difficulty Swallowing, Sore Throat, Visual Changes Cardiovascular: Denies: Chest Pain, Palpitations, Syncope Respiratory: Denies: Cough, Shortness of Breath Gastrointestinal: Denies: Abdominal Pain, Nausea, Vomiting Genitourinary: Denies: Dysuria, Frequency Musculoskeletal: Denies: Joint Pain, Muscle pain Skin: Denies: Jaundice, Rash Neurological: Denies: Balance problems, Change in Speech, Difficulty swallowing, Focal weakness Psychiatric: Denies: Anxiety, Depression Endocrine: Denies: Change in Body Habitus Hematologic/ Lymphatic: Denies: Adenopathy - Physical Exam Vital Signs Temp Pulse Resp BP 98.2 F 70 18 145/56 H 11/26/19 10:29 11/26/19 10:29 11/26/19 10:29 11/26/19 10:29 General: Oriented x3, Cooperative, Well developed HEENT: Atraumatic, PERRLA Oral: Moist Mucosa, - - Or dentition Neck: Supple, No JVD Lungs: Clear to auscultation, Normal air movement Cardiovascular: Regular rate, Regular Rhythm Abdomen: Bowel Sounds Present, Soft, Non Tender, No Hepato-splenomegaly Extremities: No clubbing, No edema Wound Measurements and Assessment WC - Nurse 2 - General Ulcer CM Notes Start: 11/26/19 10:15 Freq: Status: Active Protocol: Activity Type Activity Date Activity User E-Sign Co-Sign Detail Recorded Client Recorded Date Recorded By Document 11/26/19 11:03 MW [id number] 11/26/19 11:05 MW 11/26/19 11:03 Pain Scale: 0-10 Numeric [Pain] -Is Patient Pain Free? Yes Musculoskeletal: No Tenderness to Palpation of Joints or Extremities Lymphatic: No Cervical, Supraclavicular, or Inguinal Adenopathy Neurological: Cranial nerves II-XII grossly intact, Neuro grossly intact Psych/Mental Status: Normal Affect, Appropriate Assessment/Plan Active Problems (Last Reviewed 07/25/19 @ 09:41 by Laura Chapman) Inflammatory conditions of jaws (Acute) Other specified diseases of jaws (Acute) ZEFERINO HUBBARD is an appropriate candidate for hyperbaric oxygen therapy. Hyperbaric Oxygen Therapy would be an essential adjunct in the resolution and treatment of this patient's presenting problem. This patient has sufficient physiologic and psychological stamina to undergo the rigors of hyperbaric oxygen therapy. As such, I recommend the following: Hyperbaric Oxygen Treatments at 2.0 EILEEN in 100% Oxygen for 90 minutes per treatment, for [] treatments. I have discussed the possible benefits of hyperbaric oxygen therapy with this patient. I have also presented and described the risks, including: air gas embolism, pneumothorax, central nervous system and pulmonary oxygen toxicity, flash pulmonary edema, hypoglycemia, reversible visual refractive changes, ear and sinus maria g-trauma, and confinement anxiety. The patient has verbalized understanding of these risks, and is still wanting to undergo hyperbaric oxygen therapy. The patient understands the significant time and transportation commitment involved in daily treatments of up to two hours duration and has stated that they are willing to commit to this therapy.
== END 2019-11-29 23:59 ==
LOC: WC 09:46
PROVIDERS: Visit Provider Nurse Practitioner
DX: M27.2 Inflammatory conditions of jaws (principal); G40.909 Epilepsy, unspecified, not intractable, without status epilepticus; I51.81 Takotsubo syndrome; F17.200 Nicotine dependence, unspecified, uncomplicated; E78.2 Mixed hyperlipidemia; I10 Essential (primary) hypertension; Z79.899 Other long term (current) drug therapy; Z79.82 Long term (current) use of aspirin
CPT/HCPCS: 99203; G0463

== ENCOUNTER → 2020-02-20 11:41 | Outpatient (CLI) | payer MEDICARE, SELFPAY ==
[2020-01-26 14:06] VITALS: BMI 18.3
--- NOTE | 2020-02-20 11:58 | EKG12_ITS ---
Test Reason : PREOP Blood Pressure : / mmHG Vent. Rate : 073 BPM Atrial Rate : 073 BPM P-R Int : 172 ms QRS Dur : 068 ms QT Int : 400 ms P-R-T Axes : 037 010 021 degrees QTc Int : 440 ms Normal sinus rhythm Septal infarct , age undetermined Abnormal ECG Confirmed by RADHA KHALIL, ADIN ([id number]), editor publications QUIANA SILVER ([id number]) on 02/24/2020 2:43:52 PM Referred By: Robert Marshall Confirmed By:ADIN GARCIA MD
--- NOTE | 2020-02-20 12:04 | RAD_ITS ---
STUDY: X-RAY CHEST REASON FOR EXAM: Female, 64 years old. CLEARANCE FOR HYPERBARIC OXYGEN THERAPY TECHNIQUE: 2 views COMPARISON: Prior chest radiograph of July 01, 2019 FINDINGS: Marked hyperexpansion and peripheral vessel attenuation consistent with emphysematous changes. Negative for consolidation, focal atelectasis or a substantial pleural effusion. Normal size heart. Normal mediastinum and gregory. Normal visualized pulmonary arteries. Normal visualized aortic arch and descending thoracic aorta. Mild degenerative changes of the thoracic spine. Slight increase midthoracic kyphosis. Normal visualized ribs, clavicles, and shoulders. There is no demonstrated abnormality of the visualized soft tissue structures of the upper abdomen. RAD/Chest PA and Lateral IMPRESSION: Severe hyperexpansion and vessel attenuation consistent with emphysematous changes. Negative for new consolidation, atelectasis, cardiomegaly or pleural effusion. Electronically Signed: Digna Valdivia MD at 19:57 EDT , Service support ,
[2020-02-20 12:47] LABS: Absolute Lymphocyte Count 1.36 X10^3/uL (0.83-4.51); Absolute Neutrophil Count 5.4 X10^3/uL (2.0-7.7); Basophil# 0.05 X10^3/uL; Basophil% 0.6 % (0-1); Eosinophil# 0.13 X10^3/uL; Eosinophils% 1.7 % (0-5); Hematocrit 38.1 % (37-47); Hemoglobin 13.1 g/dL (12.0-15.0); Lymphocyte # 1.36 X10^3/ul (4.0); Lymphocyte % 17.4 % (19-41); Mean Corp Hgb Conc 34.4 g/dL (32-36); Mean Corpuscular Hgb 34.3 pg (27.0-32.0); Mean Corpuscular Volume 99.7 fL (81-99); Mean Platelet Vol. 9.9 fl (6.2-12.0); Monocyte# 0.88 X10^3/uL; Monocyte% 11.2 % (0-10); NRBC Flagged by Analyzer 0 % (0-5); Neutrophil # 5.39 X10^3/uL (2.7-7.7); Neutrophil % 68.8 % (47-70); Platelet Count 376 K/mm3 (150-450); RBC Distribution Width SD 53.6 fl (35.1-43.9); Red Blood Count 3.82 M/mm3 (4.2-5.4); White Blood Count 7.8 K/mm3 (4.4-11.0)
[2020-02-20 13:30] LABS: Prealbumin 31.9 mg/dL (20.0-40.0)
== END ==
PROVIDERS: PCP Family Medicine; Referring Provider Surgery; Visit Provider Surgery
DX: Z01.818 Encounter for other preprocedural examination (principal)
CPT/HCPCS: 36415; 71046; 84134; 85025; 93005

== ENCOUNTER 2020-03-16 09:00 | Outpatient (RCR) | payer MEDICARE, SELFPAY ==
[2020-01-26 14:06] VITALS: BMI 18.3
[2020-03-02 11:27] VITALS: BP 153/93; BP 157/79; PULSE 73; PULSE 74; RESP 16; RESP 18; TEMP 36.9; TEMP 37
--- NOTE | 2020-03-02 13:45 | PCM.HBO.PN ---
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 Progress: Patient presents today for her first session of hyperbaric oxygen therapy. She has been appropriately counseled and consented for hyperbaric oxygen therapy. Tolerance of hyperbaric oxygen therapy: Direct oxygen therapy was administered as per the facility's protocol. Hyperbaric oxygen therapy was administered at 2.5 andrew for 90 minutes using 100% oxygen and two 5-minute air breaks. Patient tolerated hyperbaric oxygen therapy well, without complaints or complications. Upon emergence from the hyperbaric chamber, vital signs remained stable. She was discharged in good condition. Past Medical History Chronic Problems (Last Reviewed 01/26/20 @ 14:05 by Laura Chapman) Mixed hyperlipidemia (Chronic) Essential hypertension (Chronic) Seizure disorder (Chronic) Tobacco dependence (Chronic) Takotsubo cardiomyopathy (Chronic) Allergies/Adverse Reactions: Allergies No Known Allergies Allergy (Verified 01/26/20 14:02) Home Medications: Ambulatory Orders Medication Instructions Recorded Aspirin [Aspirin, Baby] 81 mg PO DAILY@0800 05/05/14 Magnesium Oxide [Mag-Ox 400] 400 mg PO BID 05/05/14 Nitroglycerin (INPATIENT USE) 0.4 mg SUBLINGUAL Q5M PRN #20 tab 05/05/14 [Nitrostat] Amitriptyline HCl 50 mg PO QHS 07/01/19 Calcium Citrate/Vitamin D3 1 tab PO BID 07/01/19 [Calcium Citrate - Vit D Caplet] Fluticasone Propionate 1 spray NASAL DAILY PRN PRN 07/01/19 Metoprolol Succinate [Toprol Xl] 200 mg PO DAILY 07/01/19 Multivit-Min/Iron/Folic/Lutein 1 tab PO DAILY 07/01/19 [Centrum Silver Women Tablet] Sertraline HCl [Zoloft] 50 mg PO DAILY 07/01/19 Amlodipine/Atorvastatin [Caduet 10 1 ea PO DAILY #30 tab 07/02/19 mg-40 mg Tablet] levothyroxine 25 mcg tablet 25 mcg PO DAILY 07/25/19 phenytoin sodium extended 100 mg 100 mg PO TID cap 07/25/19 capsule phenytoin sodium extended 30 mg 30 mg PO BID cap 07/25/19 capsule Tolterodine Tartrate [Detrol LA] 2 mg PO BID 11/26/19 Maternal Family History: Family History (Last Reviewed 01/26/20 @ 14:05 by Laura Chapman) Mother Heart disease Family History: Heart Disease, Stroke Paternal Family History: Family History (Last Reviewed 01/26/20 @ 14:05 by Laura Chapman) Mother Heart disease Family History: - - from suicide, unknown medical history including cardiac history. Smoking Status: Heavy Smoker (>10/day) Physical Exam Vital Signs Temp Pulse Resp BP 98.5 F 73 18 157/79 H 03/02/20 11:27 03/02/20 11:27 03/02/20 11:27 03/02/20 11:27 General: Alert, Oriented x3, Cooperative, No apparent distress, Well developed, Well nourished HEENT: Atraumatic, PERRLA, EOMI, Normocephalic Lungs: Normal air movement Psych/Mental Status: Normal Affect, Appropriate, Alert and oriented to time, place, person, mood and affect Assessment/Plan The patient appears to be tolerating hyperbaric oxygen therapy well thus far during her initial session, and hyperbaric oxygen treatments will be continued as per the patient's medical treatment plan.
[2020-03-03 10:56] VITALS: BP 138/89; BP 169/85; PULSE 69; PULSE 81; RESP 16; RESP 18; TEMP 36.7; TEMP 37.1
--- NOTE | 2020-03-03 11:34 | PCM.HBO.PN ---
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 Progress: Patient presents today for her first session of hyperbaric oxygen therapy. She has been appropriately counseled and consented for hyperbaric oxygen therapy. Tolerance of hyperbaric oxygen therapy: Direct oxygen therapy was administered as per the facility's protocol. Hyperbaric oxygen therapy was administered at 2.5 andrew for 90 minutes using 100% oxygen and two 5-minute air breaks. Patient tolerated hyperbaric oxygen therapy well, without complaints or complications. Upon emergence from the hyperbaric chamber, vital signs remained stable. She was discharged in good condition. Past Medical History Chronic Problems (Last Reviewed 01/26/20 @ 14:05 by Laura Chapman) Mixed hyperlipidemia (Chronic) Essential hypertension (Chronic) Seizure disorder (Chronic) Tobacco dependence (Chronic) Takotsubo cardiomyopathy (Chronic) Allergies/Adverse Reactions: Allergies No Known Allergies Allergy (Verified 01/26/20 14:02) Home Medications: Ambulatory Orders Medication Instructions Recorded Aspirin [Aspirin, Baby] 81 mg PO DAILY@0800 05/05/14 Magnesium Oxide [Mag-Ox 400] 400 mg PO BID 05/05/14 Nitroglycerin (INPATIENT USE) 0.4 mg SUBLINGUAL Q5M PRN #20 tab 05/05/14 [Nitrostat] Amitriptyline HCl 50 mg PO QHS 07/01/19 Calcium Citrate/Vitamin D3 1 tab PO BID 07/01/19 [Calcium Citrate - Vit D Caplet] Fluticasone Propionate 1 spray NASAL DAILY PRN PRN 07/01/19 Metoprolol Succinate [Toprol Xl] 200 mg PO DAILY 07/01/19 Multivit-Min/Iron/Folic/Lutein 1 tab PO DAILY 07/01/19 [Centrum Silver Women Tablet] Sertraline HCl [Zoloft] 50 mg PO DAILY 07/01/19 Amlodipine/Atorvastatin [Caduet 10 1 ea PO DAILY #30 tab 07/02/19 mg-40 mg Tablet] levothyroxine 25 mcg tablet 25 mcg PO DAILY 07/25/19 phenytoin sodium extended 100 mg 100 mg PO TID cap 07/25/19 capsule phenytoin sodium extended 30 mg 30 mg PO BID cap 07/25/19 capsule Tolterodine Tartrate [Detrol LA] 2 mg PO BID 11/26/19 Maternal Family History: Family History (Last Reviewed 01/26/20 @ 14:05 by Laura Chapman) Mother Heart disease Family History: Heart Disease, Stroke Paternal Family History: Family History (Last Reviewed 01/26/20 @ 14:05 by Laura Chapman) Mother Heart disease Family History: - - from suicide, unknown medical history including cardiac history. Smoking Status: Heavy Smoker (>10/day) Physical Exam Vital Signs Temp Pulse Resp BP 98.8 F 81 18 138/89 H 03/03/20 10:56 03/03/20 10:56 03/03/20 10:56 03/03/20 10:56 Assessment/Plan The patient appears to be tolerating hyperbaric oxygen therapy well thus far during her initial session, and hyperbaric oxygen treatments will be continued as per the patient's medical treatment plan.
[2020-03-04 10:32] VITALS: BP 158/98; BP 194/84; PULSE 71; PULSE 76; RESP 16; RESP 18; TEMP 36.2; TEMP 37
--- NOTE | 2020-03-04 12:43 | PCM.HBO.PN ---
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 Progress: Patient presents today for her 3rd session of hyperbaric oxygen therapy. She has been approved for 20. Tolerance of hyperbaric oxygen therapy: Direct oxygen therapy was administered as per the facility's protocol. Hyperbaric oxygen therapy was administered at 2.5 andrew for 90 minutes using 100% oxygen and two 5-minute air breaks. Patient tolerated hyperbaric oxygen therapy well, without complaints or complications. Upon emergence from the hyperbaric chamber, vital signs remained stable. She was discharged in good condition. Past Medical History Chronic Problems (Last Reviewed 01/26/20 @ 14:05 by Laura Chapman) Mixed hyperlipidemia (Chronic) Essential hypertension (Chronic) Seizure disorder (Chronic) Tobacco dependence (Chronic) Takotsubo cardiomyopathy (Chronic) Allergies/Adverse Reactions: Allergies No Known Allergies Allergy (Verified 01/26/20 14:02) Home Medications: Ambulatory Orders Medication Instructions Recorded Aspirin [Aspirin, Baby] 81 mg PO DAILY@0800 05/05/14 Magnesium Oxide [Mag-Ox 400] 400 mg PO BID 05/05/14 Nitroglycerin (INPATIENT USE) 0.4 mg SUBLINGUAL Q5M PRN #20 tab 05/05/14 [Nitrostat] Amitriptyline HCl 50 mg PO QHS 07/01/19 Calcium Citrate/Vitamin D3 1 tab PO BID 07/01/19 [Calcium Citrate - Vit D Caplet] Fluticasone Propionate 1 spray NASAL DAILY PRN PRN 07/01/19 Metoprolol Succinate [Toprol Xl] 200 mg PO DAILY 07/01/19 Multivit-Min/Iron/Folic/Lutein 1 tab PO DAILY 07/01/19 [Centrum Silver Women Tablet] Sertraline HCl [Zoloft] 50 mg PO DAILY 07/01/19 Amlodipine/Atorvastatin [Caduet 10 1 ea PO DAILY #30 tab 07/02/19 mg-40 mg Tablet] levothyroxine 25 mcg tablet 25 mcg PO DAILY 07/25/19 phenytoin sodium extended 100 mg 100 mg PO TID cap 07/25/19 capsule phenytoin sodium extended 30 mg 30 mg PO BID cap 07/25/19 capsule Tolterodine Tartrate [Detrol LA] 2 mg PO BID 11/26/19 Maternal Family History: Family History (Last Reviewed 01/26/20 @ 14:05 by Laura Chapman) Mother Heart disease Family History: Heart Disease, Stroke Paternal Family History: Family History (Last Reviewed 01/26/20 @ 14:05 by Laura Chapman) Mother Heart disease Family History: - - from suicide, unknown medical history including cardiac history. Smoking Status: Heavy Smoker (>10/day) Physical Exam Vital Signs Temp Pulse Resp BP 97.2 F L 76 18 158/98 H 03/04/20 10:32 03/04/20 10:32 03/04/20 10:32 03/04/20 10:32 General: Alert, Oriented x3, Cooperative, No apparent distress HEENT: TM's Clear Lungs: Normal air movement Psych/Mental Status: Normal Affect Assessment/Plan The patient appears to be tolerating hyperbaric oxygen therapy well which will be continued per the patient's medical plan. [employer] Supervision
[2020-03-05 11:22] VITALS: BP 127/76; BP 167/83; PULSE 66; PULSE 72; RESP 16; TEMP 36.2; TEMP 36.4
--- NOTE | 2020-03-05 17:00 | PCM.HBO.PN ---
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 Progress: Patient presents today for her 4th session of hyperbaric oxygen therapy. She has been approved for 20. Tolerance of hyperbaric oxygen therapy: Direct oxygen therapy was administered as per the facility's protocol. Hyperbaric oxygen therapy was administered at 2.5 andrew for 90 minutes using 100% oxygen and two 5-minute air breaks. Patient tolerated hyperbaric oxygen therapy well, without complaints or complications. Upon emergence from the hyperbaric chamber, vital signs remained stable. She was discharged in good condition. Past Medical History Chronic Problems (Last Reviewed 01/26/20 @ 14:05 by Laura Chapman) Mixed hyperlipidemia (Chronic) Essential hypertension (Chronic) Seizure disorder (Chronic) Tobacco dependence (Chronic) Takotsubo cardiomyopathy (Chronic) Allergies/Adverse Reactions: Allergies No Known Allergies Allergy (Verified 01/26/20 14:02) Home Medications: Ambulatory Orders Medication Instructions Recorded Aspirin [Aspirin, Baby] 81 mg PO DAILY@0800 05/05/14 Magnesium Oxide [Mag-Ox 400] 400 mg PO BID 05/05/14 Nitroglycerin (INPATIENT USE) 0.4 mg SUBLINGUAL Q5M PRN #20 tab 05/05/14 [Nitrostat] Amitriptyline HCl 50 mg PO QHS 07/01/19 Calcium Citrate/Vitamin D3 1 tab PO BID 07/01/19 [Calcium Citrate - Vit D Caplet] Fluticasone Propionate 1 spray NASAL DAILY PRN PRN 07/01/19 Metoprolol Succinate [Toprol Xl] 200 mg PO DAILY 07/01/19 Multivit-Min/Iron/Folic/Lutein 1 tab PO DAILY 07/01/19 [Centrum Silver Women Tablet] Sertraline HCl [Zoloft] 50 mg PO DAILY 07/01/19 Amlodipine/Atorvastatin [Caduet 10 1 ea PO DAILY #30 tab 07/02/19 mg-40 mg Tablet] levothyroxine 25 mcg tablet 25 mcg PO DAILY 07/25/19 phenytoin sodium extended 100 mg 100 mg PO TID cap 07/25/19 capsule phenytoin sodium extended 30 mg 30 mg PO BID cap 07/25/19 capsule Tolterodine Tartrate [Detrol LA] 2 mg PO BID 11/26/19 Maternal Family History: Family History (Last Reviewed 01/26/20 @ 14:05 by Laura Chapman) Mother Heart disease Family History: Heart Disease, Stroke Paternal Family History: Family History (Last Reviewed 01/26/20 @ 14:05 by Laura Chapman) Mother Heart disease Family History: - - from suicide, unknown medical history including cardiac history. Smoking Status: Heavy Smoker (>10/day) Tobacco Use: Cigarettes Alcohol: None Drugs: None Physical Exam Vital Signs Temp Pulse Resp BP 97.2 F L 72 16 167/83 H 03/05/20 11:22 03/05/20 11:22 03/05/20 11:22 03/05/20 11:22 General: Alert, Oriented x3, Cooperative, No apparent distress Psych/Mental Status: Normal Affect, Appropriate Assessment/Plan Active Problems (Last Reviewed 01/26/20 @ 14:05 by Laura Chapman) Inflammatory conditions of jaws (Acute) Other specified diseases of jaws (Acute) Tobacco dependence (Chronic) The patient appears to be tolerating hyperbaric oxygen therapy well which will be continued per the patient's medical plan.
--- NOTE | 2020-03-08 13:13 | PCM.HBO.PN ---
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 Progress: Patient presents today for her 5th session of hyperbaric oxygen therapy. She has been approved for 20. Tolerance of hyperbaric oxygen therapy: Direct oxygen therapy was administered as per the facility's protocol. Hyperbaric oxygen therapy was administered at 2.5 andrew for 90 minutes using 100% oxygen and two 5-minute air breaks. Patient tolerated hyperbaric oxygen therapy well except for complaints of left ear pain where the pressure had to be decreased twice so she could tolerate the therapy. Upon emergence from the hyperbaric chamber, vital signs remained stable. Her left TM is erythematous and there are bubbles present behind the TM. She is no longer complaining of left ear pain. She will see Dr. Whitfield this afternoon for further evaluation of her Left TM to see if tubes would be beneficial for her. She was discharged in good condition. Past Medical History Chronic Problems (Last Updated 03/05/20 @ 17:[address] Vanessa Gonzalez, ) Mixed hyperlipidemia (Chronic) Essential hypertension (Chronic) Seizure disorder (Chronic) Tobacco dependence (Chronic) Takotsubo cardiomyopathy (Chronic) Allergies/Adverse Reactions: Allergies No Known Allergies Allergy (Verified 01/26/20 14:02) Home Medications: Ambulatory Orders Medication Instructions Recorded Aspirin [Aspirin, Baby] 81 mg PO DAILY@0800 05/05/14 Magnesium Oxide [Mag-Ox 400] 400 mg PO BID 05/05/14 Nitroglycerin (INPATIENT USE) 0.4 mg SUBLINGUAL Q5M PRN #20 tab 05/05/14 [Nitrostat] Amitriptyline HCl 50 mg PO QHS 07/01/19 Calcium Citrate/Vitamin D3 1 tab PO BID 07/01/19 [Calcium Citrate - Vit D Caplet] Fluticasone Propionate 1 spray NASAL DAILY PRN PRN 07/01/19 Metoprolol Succinate [Toprol Xl] 200 mg PO DAILY 07/01/19 Multivit-Min/Iron/Folic/Lutein 1 tab PO DAILY 07/01/19 [Centrum Silver Women Tablet] Sertraline HCl [Zoloft] 50 mg PO DAILY 07/01/19 Amlodipine/Atorvastatin [Caduet 10 1 ea PO DAILY #30 tab 07/02/19 mg-40 mg Tablet] levothyroxine 25 mcg tablet 25 mcg PO DAILY 07/25/19 phenytoin sodium extended 100 mg 100 mg PO TID cap 07/25/19 capsule phenytoin sodium extended 30 mg 30 mg PO BID cap 07/25/19 capsule Tolterodine Tartrate [Detrol LA] 2 mg PO BID 11/26/19 Maternal Family History: Family History (Last Reviewed 01/26/20 @ 14:05 by Laura Chapman) Mother Heart disease Family History: Heart Disease, Stroke Paternal Family History: Family History (Last Reviewed 01/26/20 @ 14:05 by Laura Chapman) Mother Heart disease Family History: - - from suicide, unknown medical history including cardiac history. Smoking Status: Heavy Smoker (>10/day) Tobacco Use: Cigarettes Alcohol: None Drugs: None Physical Exam Vital Signs Temp Pulse Resp BP 97.2 F L 72 16 167/83 H 03/05/20 11:22 03/05/20 11:22 03/05/20 11:22 03/05/20 11:22 General: Alert, Oriented x3, Cooperative HEENT: Atraumatic, TM's Clear - TM's clear upon entering the chamber. She developed left ear pain during her treatment. Upon exiting the chamber her left TM is erythematous with bubbles present behind the TM. Lungs: Clear to auscultation, Normal air movement Cardiovascular: Regular rate, Regular Rhythm Psych/Mental Status: Normal Affect, Appropriate Assessment/Plan The patient appears to be tolerating hyperbaric oxygen therapy well which will be continued per the patient's medical plan. Will refer her to ENT for further evaluation of her left TM and evaluation to see if left tympanostomy tube is necessary. Dr. Whitfield office is able to get her in this afternoon for evaluation. [id number]
[2020-03-08 13:35] VITALS: BP 160/86; BP 163/88; PULSE 70; PULSE 74; RESP 16; RESP 18; TEMP 36.7
[2020-03-09 09:58] VITALS: BP 157/95; BP 169/82; PULSE 66; PULSE 72; RESP 16; RESP 18; TEMP 36.8
--- NOTE | 2020-03-09 13:55 | PCM.HBO.PN ---
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 Progress: Patient presents today for her 6th session of hyperbaric oxygen therapy. She has been approved for 20. Tolerance of hyperbaric oxygen therapy: Hyperbaric oxygen therapy was administered as per the facility's protocol. Hyperbaric oxygen therapy was administered at 2.5 andrew for 90 minutes using 100% oxygen and two 5-minute air breaks. Patient tolerated hyperbaric oxygen therapy well, following placement of bilateral tympanic membrane myringotomy tubes on Sunday, March 08, 2020. Upon emergence from the hyperbaric chamber, vital signs remained stable. She was discharged in good condition. Past Medical History Chronic Problems (Last Updated 03/05/20 @ 17:[address] Vanessa Goznalez, DO) Mixed hyperlipidemia (Chronic) Essential hypertension (Chronic) Seizure disorder (Chronic) Tobacco dependence (Chronic) Takotsubo cardiomyopathy (Chronic) Allergies/Adverse Reactions: Allergies No Known Allergies Allergy (Verified 01/26/20 14:02) Home Medications: Ambulatory Orders Medication Instructions Recorded Aspirin [Aspirin, Baby] 81 mg PO DAILY@0800 05/05/14 Magnesium Oxide [Mag-Ox 400] 400 mg PO BID 05/05/14 Nitroglycerin (INPATIENT USE) 0.4 mg SUBLINGUAL Q5M PRN #20 tab 05/05/14 [Nitrostat] Amitriptyline HCl 50 mg PO QHS 07/01/19 Calcium Citrate/Vitamin D3 1 tab PO BID 07/01/19 [Calcium Citrate - Vit D Caplet] Fluticasone Propionate 1 spray NASAL DAILY PRN PRN 07/01/19 Metoprolol Succinate [Toprol Xl] 200 mg PO DAILY 07/01/19 Multivit-Min/Iron/Folic/Lutein 1 tab PO DAILY 07/01/19 [Centrum Silver Women Tablet] Sertraline HCl [Zoloft] 50 mg PO DAILY 07/01/19 Amlodipine/Atorvastatin [Caduet 10 1 ea PO DAILY #30 tab 07/02/19 mg-40 mg Tablet] levothyroxine 25 mcg tablet 25 mcg PO DAILY 07/25/19 phenytoin sodium extended 100 mg 100 mg PO TID cap 07/25/19 capsule phenytoin sodium extended 30 mg 30 mg PO BID cap 07/25/19 capsule Tolterodine Tartrate [Detrol LA] 2 mg PO BID 11/26/19 Maternal Family History: Family History (Last Reviewed 01/26/20 @ 14:05 by Laura Chapman) Mother Heart disease Family History: Heart Disease, Stroke Paternal Family History: Family History (Last Reviewed 01/26/20 @ 14:05 by Laura Chapman) Mother Heart disease Family History: - - from suicide, unknown medical history including cardiac history. Smoking Status: Heavy Smoker (>10/day) Tobacco Use: Cigarettes Alcohol: None Drugs: None Physical Exam Vital Signs Temp Pulse Resp BP 98.2 F 66 18 169/82 H 03/09/20 09:58 03/09/20 09:58 03/09/20 09:58 03/09/20 09:58 General: Alert, Oriented x3, Cooperative, No apparent distress, Well developed, Well nourished HEENT: Atraumatic, PERRLA, EOMI, Normocephalic Lungs: Normal air movement Psych/Mental Status: Normal Affect, Appropriate, Alert and oriented to time, place, person, mood and affect Assessment/Plan The patient appears to be tolerating hyperbaric oxygen therapy well, which will be continued as per the patient's medical plan.
--- NOTE | 2020-03-10 11:11 | PCM.HBO.PN ---
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 Progress: Patient presents today for her 7th session of hyperbaric oxygen therapy. She has been approved for 20. Tolerance of hyperbaric oxygen therapy: Hyperbaric oxygen therapy was administered as per the facility's protocol. Hyperbaric oxygen therapy was administered at 2.5 andrew for 90 minutes using 100% oxygen and two 5-minute air breaks. Patient tolerated hyperbaric oxygen therapy well, following placement of bilateral tympanic membrane myringotomy tubes on Sunday, March 08, 2020. Upon emergence from the hyperbaric chamber, vital signs remained stable. She was discharged in good condition. Past Medical History Chronic Problems (Last Updated 03/05/20 @ 17:[address] Vanessa Gonzalez, DO) Mixed hyperlipidemia (Chronic) Essential hypertension (Chronic) Seizure disorder (Chronic) Tobacco dependence (Chronic) Takotsubo cardiomyopathy (Chronic) Allergies/Adverse Reactions: Allergies No Known Allergies Allergy (Verified 01/26/20 14:02) Home Medications: Ambulatory Orders Medication Instructions Recorded Aspirin [Aspirin, Baby] 81 mg PO DAILY@0800 05/05/14 Magnesium Oxide [Mag-Ox 400] 400 mg PO BID 05/05/14 Nitroglycerin (INPATIENT USE) 0.4 mg SUBLINGUAL Q5M PRN #20 tab 05/05/14 [Nitrostat] Amitriptyline HCl 50 mg PO QHS 07/01/19 Calcium Citrate/Vitamin D3 1 tab PO BID 07/01/19 [Calcium Citrate - Vit D Caplet] Fluticasone Propionate 1 spray NASAL DAILY PRN PRN 07/01/19 Metoprolol Succinate [Toprol Xl] 200 mg PO DAILY 07/01/19 Multivit-Min/Iron/Folic/Lutein 1 tab PO DAILY 07/01/19 [Centrum Silver Women Tablet] Sertraline HCl [Zoloft] 50 mg PO DAILY 07/01/19 Amlodipine/Atorvastatin [Caduet 10 1 ea PO DAILY #30 tab 07/02/19 mg-40 mg Tablet] levothyroxine 25 mcg tablet 25 mcg PO DAILY 07/25/19 phenytoin sodium extended 100 mg 100 mg PO TID cap 07/25/19 capsule phenytoin sodium extended 30 mg 30 mg PO BID cap 07/25/19 capsule Tolterodine Tartrate [Detrol LA] 2 mg PO BID 11/26/19 Maternal Family History: Family History (Last Reviewed 01/26/20 @ 14:05 by Laura Chapman) Mother Heart disease Family History: Heart Disease, Stroke Paternal Family History: Family History (Last Reviewed 01/26/20 @ 14:05 by Laura Chapman) Mother Heart disease Family History: - - from suicide, unknown medical history including cardiac history. Smoking Status: Heavy Smoker (>10/day) Tobacco Use: Cigarettes Alcohol: None Drugs: None Physical Exam Vital Signs Temp Pulse Resp BP 98.2 F 66 18 169/82 H 03/09/20 09:58 03/09/20 09:58 03/09/20 09:58 03/09/20 09:58 Assessment/Plan The patient appears to be tolerating hyperbaric oxygen therapy well, which will be continued as per the patient's medical plan.
[2020-03-10 11:57] VITALS: BP 148/73; BP 152/82; PULSE 67; PULSE 80; RESP 16; RESP 18; TEMP 35.9; TEMP 36.9
[2020-03-11 12:25] VITALS: BP 131/76; BP 153/83; PULSE 70; RESP 16; RESP 18; TEMP 36.5; TEMP 36.9
--- NOTE | 2020-03-11 16:05 | PCM.HBO.PN ---
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 Progress: Patient presents today for her 8th session of hyperbaric oxygen therapy. She has been approved for 20. Tolerance of hyperbaric oxygen therapy: Hyperbaric oxygen therapy was administered as per the facility's protocol. Hyperbaric oxygen therapy was administered at 2.5 andrew for 90 minutes using 100% oxygen and two 5-minute air breaks. Patient tolerated hyperbaric oxygen therapy well, following placement of bilateral tympanic membrane myringotomy tubes on Sunday, March 08, 2020. Upon emergence from the hyperbaric chamber, vital signs remained stable. She was discharged in good condition. Past Medical History Chronic Problems (Last Updated 03/05/20 @ 17:[address] Vanessa Gonzalez, DO) Mixed hyperlipidemia (Chronic) Essential hypertension (Chronic) Seizure disorder (Chronic) Tobacco dependence (Chronic) Takotsubo cardiomyopathy (Chronic) Allergies/Adverse Reactions: Allergies No Known Allergies Allergy (Verified 01/26/20 14:02) Home Medications: Ambulatory Orders Medication Instructions Recorded Aspirin [Aspirin, Baby] 81 mg PO DAILY@0800 05/05/14 Magnesium Oxide [Mag-Ox 400] 400 mg PO BID 05/05/14 Nitroglycerin (INPATIENT USE) 0.4 mg SUBLINGUAL Q5M PRN #20 tab 05/05/14 [Nitrostat] Amitriptyline HCl 50 mg PO QHS 07/01/19 Calcium Citrate/Vitamin D3 1 tab PO BID 07/01/19 [Calcium Citrate - Vit D Caplet] Fluticasone Propionate 1 spray NASAL DAILY PRN PRN 07/01/19 Metoprolol Succinate [Toprol Xl] 200 mg PO DAILY 07/01/19 Multivit-Min/Iron/Folic/Lutein 1 tab PO DAILY 07/01/19 [Centrum Silver Women Tablet] Sertraline HCl [Zoloft] 50 mg PO DAILY 07/01/19 Amlodipine/Atorvastatin [Caduet 10 1 ea PO DAILY #30 tab 07/02/19 mg-40 mg Tablet] levothyroxine 25 mcg tablet 25 mcg PO DAILY 07/25/19 phenytoin sodium extended 100 mg 100 mg PO TID cap 07/25/19 capsule phenytoin sodium extended 30 mg 30 mg PO BID cap 07/25/19 capsule Tolterodine Tartrate [Detrol LA] 2 mg PO BID 11/26/19 Maternal Family History: Family History (Last Reviewed 01/26/20 @ 14:05 by Laura Chapman) Mother Heart disease Family History: Heart Disease, Stroke Paternal Family History: Family History (Last Reviewed 01/26/20 @ 14:05 by Laura Chapman) Mother Heart disease Family History: - - from suicide, unknown medical history including cardiac history. Smoking Status: Heavy Smoker (>10/day) Tobacco Use: Cigarettes Alcohol: None Drugs: None Physical Exam Vital Signs Temp Pulse Resp BP 97.7 F L 70 18 131/76 H 03/11/20 12:25 03/11/20 12:25 03/11/20 12:25 03/11/20 12:25 General: Alert, Oriented x3, Cooperative, No apparent distress HEENT: Atraumatic, Normocephalic Lungs: Normal air movement Psych/Mental Status: Normal Affect Assessment/Plan The patient appears to be tolerating hyperbaric oxygen therapy well, which will be continued as per the patient's medical plan. HBO Supervision
[2020-03-12 09:46] VITALS: BP 162/94; BP 196/102; PULSE 70; PULSE 80; RESP 18; TEMP 36.2; TEMP 36.7
--- NOTE | 2020-03-12 18:10 | PCM.HBO.PN ---
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 Progress: Patient presents today for her 9th session of hyperbaric oxygen therapy. She has been approved for 30. Tolerance of hyperbaric oxygen therapy: Hyperbaric oxygen therapy was administered as per the facility's protocol. Hyperbaric oxygen therapy was administered at 2.5 andrew for 90 minutes using 100% oxygen and two 5-minute air breaks. Patient tolerated hyperbaric oxygen therapy well, following placement of bilateral tympanic membrane myringotomy tubes on Sunday, March 08, 2020. Upon emergence from the hyperbaric chamber, vital signs remained stable. She was discharged in good condition. Past Medical History Chronic Problems (Last Updated 03/05/20 @ 17:[address] Vanessa Gonzalez, DO) Mixed hyperlipidemia (Chronic) Essential hypertension (Chronic) Seizure disorder (Chronic) Tobacco dependence (Chronic) Takotsubo cardiomyopathy (Chronic) Allergies/Adverse Reactions: Allergies No Known Allergies Allergy (Verified 01/26/20 14:02) Home Medications: Ambulatory Orders Medication Instructions Recorded Aspirin [Aspirin, Baby] 81 mg PO DAILY@0800 05/05/14 Magnesium Oxide [Mag-Ox 400] 400 mg PO BID 05/05/14 Nitroglycerin (INPATIENT USE) 0.4 mg SUBLINGUAL Q5M PRN #20 tab 05/05/14 [Nitrostat] Amitriptyline HCl 50 mg PO QHS 07/01/19 Calcium Citrate/Vitamin D3 1 tab PO BID 07/01/19 [Calcium Citrate - Vit D Caplet] Fluticasone Propionate 1 spray NASAL DAILY PRN PRN 07/01/19 Metoprolol Succinate [Toprol Xl] 200 mg PO DAILY 07/01/19 Multivit-Min/Iron/Folic/Lutein 1 tab PO DAILY 07/01/19 [Centrum Silver Women Tablet] Sertraline HCl [Zoloft] 50 mg PO DAILY 07/01/19 Amlodipine/Atorvastatin [Caduet 10 1 ea PO DAILY #30 tab 07/02/19 mg-40 mg Tablet] levothyroxine 25 mcg tablet 25 mcg PO DAILY 07/25/19 phenytoin sodium extended 100 mg 100 mg PO TID cap 07/25/19 capsule phenytoin sodium extended 30 mg 30 mg PO BID cap 07/25/19 capsule Tolterodine Tartrate [Detrol LA] 2 mg PO BID 11/26/19 Maternal Family History: Family History (Last Reviewed 01/26/20 @ 14:05 by Laura Chapman) Mother Heart disease Family History: Heart Disease, Stroke Paternal Family History: Family History (Last Reviewed 01/26/20 @ 14:05 by Laura Chapman) Mother Heart disease Family History: - - from suicide, unknown medical history including cardiac history. Smoking Status: Heavy Smoker (>10/day) Tobacco Use: Cigarettes Alcohol: None Drugs: None Physical Exam Vital Signs Temp Pulse Resp BP 97.1 F L 70 18 162/94 H 03/12/20 09:46 03/12/20 09:46 03/12/20 09:46 03/12/20 09:46 General: Alert, Oriented x3, Cooperative, No apparent distress Psych/Mental Status: Normal Affect, Appropriate Assessment/Plan Active Problems (Last Updated 03/05/20 @ 17:[address] Vanessa Gonzalez, DO) Inflammatory conditions of jaws (Acute) Other specified diseases of jaws (Acute) Essential hypertension (Chronic) Tobacco dependence (Chronic) The patient appears to be tolerating hyperbaric oxygen therapy well, which will be continued as per the patient's medical plan. She was encouraged to discuss with PCP medication changes for better control of hypertension and encouraged to quit smoking.
[2020-03-16 09:34] VITALS: BP 163/83; BP 184/98; PULSE 72; PULSE 78; RESP 16; RESP 18; TEMP 36.5; TEMP 37.1
--- NOTE | 2020-03-16 12:38 | PCM.HBO.PN ---
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 ZEFERINO HUBBARD is a 64 year old currently undergoing hyperbaric oxygen therapy for osteoradionecrosis/radiation injury to the jaw, status-post prior radiation for oral cancer. Progress: Patient presents today for her 10th session of hyperbaric oxygen therapy. She has been approved for 30. Tolerance of hyperbaric oxygen therapy: Hyperbaric oxygen therapy was administered as per the facility's protocol. Hyperbaric oxygen therapy was administered at 2.5 andrew for 90 minutes using 100% oxygen and two 5-minute air breaks. Patient tolerated hyperbaric oxygen therapy well, following placement of bilateral tympanic membrane myringotomy tubes on Sunday, March 08, 2020. Upon emergence from the hyperbaric chamber, vital signs revealed the patient's blood pressure to be 198/110. She is completely asymptomatic, and without complaints. She was discharged in good condition. However, the patient was counseled to contact her primary care physician or her device repair technician without delay, for advisement relative to blood pressure management, and to obtain medical clearance for additional hyperbaric oxygen therapy sessions. She does have a pre-existing appointment with her device repair technician on March, but has been advised to seek evaluation prior to that time to enable continuation of her HBO sessions without interruption. Past Medical History Chronic Problems (Last Updated 03/12/20 @ 18:[address] Vanessa Gonzalez, DO) Mixed hyperlipidemia (Chronic) Essential hypertension (Chronic) Seizure disorder (Chronic) Tobacco dependence (Chronic) Takotsubo cardiomyopathy (Chronic) Allergies/Adverse Reactions: Allergies No Known Allergies Allergy (Verified 01/26/20 14:02) Home Medications: Ambulatory Orders Medication Instructions Recorded Aspirin [Aspirin, Baby] 81 mg PO DAILY@0800 05/05/14 Magnesium Oxide [Mag-Ox 400] 400 mg PO BID 05/05/14 Nitroglycerin (INPATIENT USE) 0.4 mg SUBLINGUAL Q5M PRN #20 tab 05/05/14 [Nitrostat] Amitriptyline HCl 50 mg PO QHS 07/01/19 Calcium Citrate/Vitamin D3 1 tab PO BID 07/01/19 [Calcium Citrate - Vit D Caplet] Fluticasone Propionate 1 spray NASAL DAILY PRN PRN 07/01/19 Metoprolol Succinate [Toprol Xl] 200 mg PO DAILY 07/01/19 Multivit-Min/Iron/Folic/Lutein 1 tab PO DAILY 07/01/19 [Centrum Silver Women Tablet] Sertraline HCl [Zoloft] 50 mg PO DAILY 07/01/19 Amlodipine/Atorvastatin [Caduet 10 1 ea PO DAILY #30 tab 07/02/19 mg-40 mg Tablet] levothyroxine 25 mcg tablet 25 mcg PO DAILY 07/25/19 phenytoin sodium extended 100 mg 100 mg PO TID cap 07/25/19 capsule phenytoin sodium extended 30 mg 30 mg PO BID cap 07/25/19 capsule Tolterodine Tartrate [Detrol LA] 2 mg PO BID 11/26/19 Maternal Family History: Family History (Last Reviewed 01/26/20 @ 14:05 by Laura Chapman) Mother Heart disease Family History: Heart Disease, Stroke Paternal Family History: Family History (Last Reviewed 01/26/20 @ 14:05 by Laura Chapman) Mother Heart disease Family History: - - from suicide, unknown medical history including cardiac history. Smoking Status: Heavy Smoker (>10/day) Tobacco Use: Cigarettes Alcohol: None Drugs: None Physical Exam Vital Signs Temp Pulse Resp BP 98.7 F 78 18 163/83 H 03/16/20 09:34 03/16/20 09:34 03/16/20 09:34 03/16/20 09:34 General: Alert, Oriented x3, Cooperative, No apparent distress, Well developed, Well nourished HEENT: Atraumatic, PERRLA, EOMI, Normocephalic Lungs: Normal air movement Psych/Mental Status: Normal Affect, Appropriate, Alert and oriented to time, place, person, mood and affect Assessment/Plan The patient appears to be tolerating hyperbaric oxygen treatments well. However, she has demonstrated some lability of her blood pressure, documented to be as high as 198/110 following her hyperbaric oxygen therapy session today. The patient has been advised to seek evaluation with her primary care physician or device repair technician without delay, such that medical clearance can be obtained and her hyperbaric oxygen therapy sessions can continue without interruption.
[2020-04-21 09:35] VITALS: BP 146/79; BP 166/87; PULSE 73; PULSE 74; RESP 18; TEMP 36.3; TEMP 36.7
== END 2020-03-30 23:59 ==
LOC: WC 09:00
PROVIDERS: PCP Family Medicine; Visit Provider Family Medicine
DX: M27.2 Inflammatory conditions of jaws (principal); Y84.2 Radiological procedure and radiotherapy as the cause of abnormal reaction of the patient, or of later complication, without mention of misadventure at the time of the procedure; E78.2 Mixed hyperlipidemia; I10 Essential (primary) hypertension; Z79.899 Other long term (current) drug therapy; F17.200 Nicotine dependence, unspecified, uncomplicated; G40.909 Epilepsy, unspecified, not intractable, without status epilepticus; Z79.82 Long term (current) use of aspirin; C06.9 Malignant neoplasm of mouth, unspecified; I51.81 Takotsubo syndrome
CPT/HCPCS: 99183; G0277

== ENCOUNTER 2020-03-21 11:44 | Emergency (ER) | payer MEDICARE, SELFPAY ==
[2020-01-26 14:06] VITALS: BMI 18.3
[2020-03-21 11:46] VITALS: BP 126/81; PULSE 91; RESP 16; TEMP 36.7; O2SAT 98; BMI 18.4
--- NOTE | 2020-03-21 12:05 | ED.VISSUMM ---
- ER Visit Summary Date of Service: 03/21/20 Chief Complaint: Toothache History of Present Illness: The patient is a 64 F who has had a tooth ache for 5 days. She has poor dentition. She is seeing an oral surgeon in [place]. She was scheduled to have all of her teeth removed but her oral surgeon wanted her to have 30 hyperbaric oxygen treatments before surgery. She is currently in the middle of this. They stopped her treatments because of hypertension earlier this week. She then developed this right tooth pain with facial swelling. She denies fevers. She has been trying Tylenol at home without any relief. Physical Examination: Signs reviewed. Mouth exam reveals tenderness in the right lower portion. She has right-sided facial swelling. She has very poor dentition with multiple rotted teeth. She has no gingival abscess.She has no cervical lymphadenopathy. Test Results: None performed Emergency Department Course and Treatment: Patient will treat with naproxen and penicillin at home. She then told me that she was started on hydrochlorothiazide this week but she forgot to tell her doctor that she was allergic to this. She took a dose yesterday and felt lightheaded. She has not taken any doses today. Her current blood pressure is 126/81. I do not feel she needs to be started on any new medications currently. She will need to call her doctor this week to follow-up on this. She will also call her oral surgeon Treatment Plan: [] Disposition: Discharge Impression: Odontalgia This note was generated with [employer] dictation software. It may contain incorrect words, spelling, and punctuation that were not noted in review of the chart prior to signing ED Disposition - Plan for ED Patient: Disposition: Home or Assisted Living Instructions: ED Tooth Pain Prescriptions: Naproxen [Naprosyn] 500 mg PO BID PRN #20 tab Transmission Status: Pending to [id number] Penicillin V Potassium 500 mg PO 4X/DAY #28 tab Transmission Status: Pending to [id number] Referrals: Tushar Block MD [Primary Care Provider] -
[2020-03-21] MEDS: Penicillin Vk 250 MG Tablet 500 MG PO (12:27)
[2020-03-21] MEDS: Naproxen 500 MG Tablet PO (12:28)
== END 2020-03-21 12:30 | disposition home or self-care (01) ==
PROVIDERS: Emergency Provider Emergency Medicine; PCP Family Medicine
DX: K08.89 Other specified disorders of teeth and supporting structures (principal); I10 Essential (primary) hypertension; Z79.899 Other long term (current) drug therapy
CPT/HCPCS: 99283

== ENCOUNTER 2020-04-29 09:00 | Outpatient (RCR) | payer MEDICARE, SELFPAY ==
[2020-03-31 00:15] VITALS: BP 184/98; PULSE 72; RESP 16; TEMP 36.5
--- NOTE | 2020-04-07 17:08 | WC ---
04/07/20 Left VM for patient to contact the wound center.
[2020-04-13 10:21] VITALS: BP 161/81; PULSE 71; RESP 16; TEMP 36.6
--- NOTE | 2020-04-13 14:31 | PCM.HBO.PN ---
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 Progress: This represents the 11th such hyperbaric oxygen therapy session, of an anticipated 30 such treatments. Tolerance of hyperbaric oxygen therapy: Hyperbaric oxygen therapy was administered as per the facility's protocol. Patient tolerated HBO therapy well, without complaints or complications. The patient was treated for 90 minutes at 2.5 andrew, with two 5-minute air breaks. Upon emergence from the hyperbaric chamber, patient's vital signs remained stable. She was discharged in good condition. Past Medical History Chronic Problems (Last Updated 03/12/20 @ 18:[address] Vanessa Gonzalez, DO) Mixed hyperlipidemia (Chronic) Essential hypertension (Chronic) Seizure disorder (Chronic) Tobacco dependence (Chronic) Takotsubo cardiomyopathy (Chronic) Allergies/Adverse Reactions: Allergies hydrochlorothiazide Adverse Reaction (Verified 03/21/20 11:45) PT UNSURE OF REACTION PATIENT STATES CAUSED HER TO BE WEAK WITH SYNCOPAL EPISODES Home Medications: Ambulatory Orders Medication Instructions Recorded Aspirin [Aspirin, Baby] 81 mg PO DAILY@0800 05/05/14 Magnesium Oxide [Mag-Ox 400] 400 mg PO BID 05/05/14 Nitroglycerin (INPATIENT USE) 0.4 mg SUBLINGUAL Q5M PRN #20 tab 05/05/14 [Nitrostat] Amitriptyline HCl 50 mg PO QHS 07/01/19 Calcium Citrate/Vitamin D3 1 tab PO BID 07/01/19 [Calcium Citrate - Vit D Caplet] Fluticasone Propionate 1 spray NASAL DAILY PRN PRN 07/01/19 Metoprolol Succinate [Toprol Xl] 200 mg PO DAILY 07/01/19 Multivit-Min/Iron/Folic/Lutein 1 tab PO DAILY 07/01/19 [Centrum Silver Women Tablet] Sertraline HCl [Zoloft] 50 mg PO DAILY 07/01/19 Amlodipine/Atorvastatin [Caduet 10 1 ea PO DAILY #30 tab 07/02/19 mg-40 mg Tablet] levothyroxine 25 mcg tablet 25 mcg PO DAILY 07/25/19 phenytoin sodium extended 100 mg 100 mg PO TID cap 07/25/19 capsule phenytoin sodium extended 30 mg 30 mg PO BID cap 07/25/19 capsule Tolterodine Tartrate [Detrol LA] 2 mg PO BID 11/26/19 Naproxen [Naprosyn] 500 mg PO BID PRN #20 tab 03/21/20 Penicillin V Potassium 500 mg PO 4X/DAY #28 tab 03/21/20 Maternal Family History: Family History (Last Reviewed 01/26/20 @ 14:05 by Laura Chapman) Mother Heart disease Family History: Heart Disease, Stroke Paternal Family History: Family History (Last Reviewed 01/26/20 @ 14:05 by Laura Chapman) Mother Heart disease Family History: - - from suicide, unknown medical history including cardiac history. Smoking Status: Heavy Smoker (>10/day) Tobacco Use: Cigarettes Physical Exam Vital Signs Temp Pulse Resp BP 97.8 F 71 16 161/81 H 04/13/20 10:21 04/13/20 10:21 04/13/20 10:21 04/13/20 10:21 General: Alert, Oriented x3, Cooperative, No apparent distress, Well developed, Well nourished HEENT: Atraumatic, PERRLA, EOMI, Normocephalic Lungs: Normal air movement Psych/Mental Status: Normal Affect, Appropriate, Alert and oriented to time, place, person, mood and affect Assessment/Plan The patient appears to be tolerating hyperbaric oxygen therapy well, which will be continued as per the patient's medical plan. Treatment Course Number Number of HBO Treatments 30 Ordered Treatment Course Number 1 Treatment # 11 Chamber # [id number] Chamber Type Monoplace Other - Detail Osteoradionecrosis (Specify Yes: Jaw site in comment) Soft Tissue Radionecrosis ( Yes: Jaw specify site in comment) Treatment Plan EILEEN (Atmospheric Absolute) 2.5 Number of Minutes 90 Number of Air Breaks 2
[2020-04-14 08:34] VITALS: BP 158/84; BP 177/83; PULSE 67; PULSE 68; RESP 16; TEMP 36.6; TEMP 36.7
--- NOTE | 2020-04-14 10:37 | PCM.HBO.PN ---
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 Progress: This represents the 12th such hyperbaric oxygen therapy session, of an anticipated 30 such treatments. Tolerance of hyperbaric oxygen therapy: Hyperbaric oxygen therapy was administered as per the facility's protocol. Patient tolerated HBO therapy well, without complaints or complications. The patient was treated for 90 minutes at 2.5 andrew, with two 5-minute air breaks. Upon emergence from the hyperbaric chamber, patient's vital signs remained stable. She was discharged in good condition. Past Medical History Chronic Problems (Last Updated 03/12/20 @ 18:[address] Vanessa Gonzalez, DO) Mixed hyperlipidemia (Chronic) Essential hypertension (Chronic) Seizure disorder (Chronic) Tobacco dependence (Chronic) Takotsubo cardiomyopathy (Chronic) Allergies/Adverse Reactions: Allergies hydrochlorothiazide Adverse Reaction (Verified 03/21/20 11:45) PT UNSURE OF REACTION PATIENT STATES CAUSED HER TO BE WEAK WITH SYNCOPAL EPISODES Home Medications: Ambulatory Orders Medication Instructions Recorded Aspirin [Aspirin, Baby] 81 mg PO DAILY@0800 05/05/14 Magnesium Oxide [Mag-Ox 400] 400 mg PO BID 05/05/14 Nitroglycerin (INPATIENT USE) 0.4 mg SUBLINGUAL Q5M PRN #20 tab 05/05/14 [Nitrostat] Amitriptyline HCl 50 mg PO QHS 07/01/19 Calcium Citrate/Vitamin D3 1 tab PO BID 07/01/19 [Calcium Citrate - Vit D Caplet] Fluticasone Propionate 1 spray NASAL DAILY PRN PRN 07/01/19 Metoprolol Succinate [Toprol Xl] 200 mg PO DAILY 07/01/19 Multivit-Min/Iron/Folic/Lutein 1 tab PO DAILY 07/01/19 [Centrum Silver Women Tablet] Sertraline HCl [Zoloft] 50 mg PO DAILY 07/01/19 Amlodipine/Atorvastatin [Caduet 10 1 ea PO DAILY #30 tab 07/02/19 mg-40 mg Tablet] levothyroxine 25 mcg tablet 25 mcg PO DAILY 07/25/19 phenytoin sodium extended 100 mg 100 mg PO TID cap 07/25/19 capsule phenytoin sodium extended 30 mg 30 mg PO BID cap 07/25/19 capsule Tolterodine Tartrate [Detrol LA] 2 mg PO BID 11/26/19 Naproxen [Naprosyn] 500 mg PO BID PRN #20 tab 03/21/20 Penicillin V Potassium 500 mg PO 4X/DAY #28 tab 03/21/20 Maternal Family History: Family History (Last Reviewed 01/26/20 @ 14:05 by Laura Chapman) Mother Heart disease Family History: Heart Disease, Stroke Paternal Family History: Family History (Last Reviewed 01/26/20 @ 14:05 by Laura Chapman) Mother Heart disease Family History: - - from suicide, unknown medical history including cardiac history. Smoking Status: Heavy Smoker (>10/day) Tobacco Use: Cigarettes Physical Exam Vital Signs Temp Pulse Resp BP 98.1 F 67 16 177/83 H 04/14/20 08:34 04/14/20 08:34 04/14/20 08:34 04/14/20 08:34 Assessment/Plan The patient appears to be tolerating hyperbaric oxygen therapy well, which will be continued as per the patient's medical plan. Treatment Course Number Number of HBO Treatments 30 Ordered Treatment Course Number 1 Treatment # 12 Chamber # [id number] Chamber Type Monoplace Other - Detail Osteoradionecrosis (Specify Yes: Jaw site in comment) Soft Tissue Radionecrosis ( Yes: Jaw specify site in comment) Treatment Plan EILEEN (Atmospheric Absolute) 2.5 Number of Minutes 90 Number of Air Breaks 2
[2020-04-19 11:02] VITALS: BP 142/71; BP 151/87; PULSE 71; PULSE 73; RESP 18; RESP 20; TEMP 36; TEMP 36.1
--- NOTE | 2020-04-19 16:40 | PCM.HBO.PN ---
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 Progress: This represents the 13th such hyperbaric oxygen therapy session, of an anticipated 30 such treatments. Tolerance of hyperbaric oxygen therapy: Hyperbaric oxygen therapy was administered as per the facility's protocol. Patient tolerated HBO therapy well, without complaints or complications. The patient was treated for 90 minutes at 2.5 andrew, with two 5-minute air breaks. Upon emergence from the hyperbaric chamber, patient's vital signs remained stable. She was discharged in good condition. Past Medical History Chronic Problems (Last Updated 03/12/20 @ 18:[address] 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) Mixed hyperlipidemia (Chronic) Essential hypertension (Chronic) Seizure disorder (Chronic) Tobacco dependence (Chronic) Takotsubo cardiomyopathy (Chronic) Allergies/Adverse Reactions: Allergies hydrochlorothiazide Adverse Reaction (Verified 03/21/20 11:45) PT UNSURE OF REACTION PATIENT STATES CAUSED HER TO BE WEAK WITH SYNCOPAL EPISODES Home Medications: Ambulatory Orders Medication Instructions Recorded Aspirin [Aspirin, Baby] 81 mg PO DAILY@0800 05/05/14 Magnesium Oxide [Mag-Ox 400] 400 mg PO BID 05/05/14 Nitroglycerin (INPATIENT USE) 0.4 mg SUBLINGUAL Q5M PRN #20 tab 05/05/14 [Nitrostat] Amitriptyline HCl 50 mg PO QHS 07/01/19 Calcium Citrate/Vitamin D3 1 tab PO BID 07/01/19 [Calcium Citrate - Vit D Caplet] Fluticasone Propionate 1 spray NASAL DAILY PRN PRN 07/01/19 Metoprolol Succinate [Toprol Xl] 200 mg PO DAILY 07/01/19 Multivit-Min/Iron/Folic/Lutein 1 tab PO DAILY 07/01/19 [Centrum Silver Women Tablet] Sertraline HCl [Zoloft] 50 mg PO DAILY 07/01/19 Amlodipine/Atorvastatin [Caduet 10 1 ea PO DAILY #30 tab 07/02/19 mg-40 mg Tablet] levothyroxine 25 mcg tablet 25 mcg PO DAILY 07/25/19 phenytoin sodium extended 100 mg 100 mg PO TID cap 07/25/19 capsule phenytoin sodium extended 30 mg 30 mg PO BID cap 07/25/19 capsule Tolterodine Tartrate [Detrol LA] 2 mg PO BID 11/26/19 Naproxen [Naprosyn] 500 mg PO BID PRN #20 tab 03/21/20 Penicillin V Potassium 500 mg PO 4X/DAY #28 tab 03/21/20 Maternal Family History: Family History (Last Reviewed 01/26/20 @ 14:05 by Laura Chapman) Mother Heart disease Family History: Heart Disease, Stroke Paternal Family History: Family History (Last Reviewed 01/26/20 @ 14:05 by Laura Chapman) Mother Heart disease Family History: - - from suicide, unknown medical history including cardiac history. Smoking Status: Heavy Smoker (>10/day) Tobacco Use: Cigarettes Physical Exam Vital Signs Temp Pulse Resp BP 97.0 F L 73 20 H 151/87 H 04/19/20 11:02 04/19/20 11:02 04/19/20 11:02 04/19/20 11:02 Assessment/Plan Treatment Course Number Number of HBO Treatments 30 Ordered Treatment Course Number 1 Treatment # 13 Chamber # [id number] Chamber Type Monoplace Other - Detail Osteoradionecrosis (Specify Yes: JAW site in comment) Soft Tissue Radionecrosis ( Yes: Jaw specify site in comment) Treatment Plan EILEEN (Atmospheric Absolute) 2.5 Number of Minutes 90 Number of Air Breaks 2 HBO Charges CPT - 86972 ICD-10 - M27.2, C06.9, T66.xxxS
[2020-04-20 11:48] VITALS: BP 154/85; BP 176/79; PULSE 70; PULSE 73; RESP 16; TEMP 36.1; TEMP 36.4
--- NOTE | 2020-04-20 12:11 | PCM.HBO.PN ---
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 Progress: This represents the 14th such hyperbaric oxygen therapy session, of an anticipated 30 such treatments. Tolerance of hyperbaric oxygen therapy: Hyperbaric oxygen therapy was administered as per the facility's protocol. Patient tolerated HBO therapy well, without complaints or complications. The patient was treated for 90 minutes at 2.5 andrew, with two 5-minute air breaks. Upon emergence from the hyperbaric chamber, patient's vital signs remained stable. She was discharged in good condition. Past Medical History Chronic Problems (Last Updated 03/12/20 @ 18:[address] Vanessa Gonzalez, DO) Mixed hyperlipidemia (Chronic) Essential hypertension (Chronic) Seizure disorder (Chronic) Tobacco dependence (Chronic) Takotsubo cardiomyopathy (Chronic) Allergies/Adverse Reactions: Allergies hydrochlorothiazide Adverse Reaction (Verified 03/21/20 11:45) PT UNSURE OF REACTION PATIENT STATES CAUSED HER TO BE WEAK WITH SYNCOPAL EPISODES Home Medications: Ambulatory Orders Medication Instructions Recorded Aspirin [Aspirin, Baby] 81 mg PO DAILY@0800 05/05/14 Magnesium Oxide [Mag-Ox 400] 400 mg PO BID 05/05/14 Nitroglycerin (INPATIENT USE) 0.4 mg SUBLINGUAL Q5M PRN #20 tab 05/05/14 [Nitrostat] Amitriptyline HCl 50 mg PO QHS 07/01/19 Calcium Citrate/Vitamin D3 1 tab PO BID 07/01/19 [Calcium Citrate - Vit D Caplet] Fluticasone Propionate 1 spray NASAL DAILY PRN PRN 07/01/19 Metoprolol Succinate [Toprol Xl] 200 mg PO DAILY 07/01/19 Multivit-Min/Iron/Folic/Lutein 1 tab PO DAILY 07/01/19 [Centrum Silver Women Tablet] Sertraline HCl [Zoloft] 50 mg PO DAILY 07/01/19 Amlodipine/Atorvastatin [Caduet 10 1 ea PO DAILY #30 tab 07/02/19 mg-40 mg Tablet] levothyroxine 25 mcg tablet 25 mcg PO DAILY 07/25/19 phenytoin sodium extended 100 mg 100 mg PO TID cap 07/25/19 capsule phenytoin sodium extended 30 mg 30 mg PO BID cap 07/25/19 capsule Tolterodine Tartrate [Detrol LA] 2 mg PO BID 11/26/19 Naproxen [Naprosyn] 500 mg PO BID PRN #20 tab 03/21/20 Penicillin V Potassium 500 mg PO 4X/DAY #28 tab 03/21/20 Maternal Family History: Family History (Last Reviewed 01/26/20 @ 14:05 by Laura Chapman) Mother Heart disease Family History: Heart Disease, Stroke Paternal Family History: Family History (Last Reviewed 01/26/20 @ 14:05 by Laura Chapman) Mother Heart disease Family History: - - from suicide, unknown medical history including cardiac history. Smoking Status: Heavy Smoker (>10/day) Tobacco Use: Cigarettes Physical Exam Vital Signs Temp Pulse Resp BP 96.9 F L 73 16 176/79 H 04/20/20 11:48 04/20/20 11:48 04/20/20 11:48 04/20/20 11:48 General: Alert, Oriented x3, Cooperative, No apparent distress, Well developed, Well nourished HEENT: Atraumatic, PERRLA, EOMI, Normocephalic Lungs: Normal air movement Psych/Mental Status: Normal Affect, Appropriate, Alert and oriented to time, place, person, mood and affect Assessment/Plan The patient appears to be tolerating hyperbaric oxygen therapy well, which will be continued as per the patient's medical plan. Treatment Course Number Number of HBO Treatments 20 Ordered Treatment Course Number 1 Treatment # 14 Chamber # 1 Chamber Type Monoplace Other - Detail Osteoradionecrosis (Specify Yes: JAW site in comment) Soft Tissue Radionecrosis ( Yes: Jaw specify site in comment) Treatment Plan EILEEN (Atmospheric Absolute) 2 Number of Minutes 90 Number of Air Breaks 2
--- NOTE | 2020-04-21 12:17 | PCM.HBO.PN ---
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 Progress: This represents the 15th such hyperbaric oxygen therapy session, of an anticipated 30 such treatments. Tolerance of hyperbaric oxygen therapy: Hyperbaric oxygen therapy was administered as per the facility's protocol. Patient tolerated HBO therapy well, without complaints or complications. The patient was treated for 90 minutes at 2.5 andrew, with two 5-minute air breaks. Upon emergence from the hyperbaric chamber, patient's vital signs remained stable. She was discharged in good condition. Past Medical History Chronic Problems (Last Updated 03/12/20 @ 18:[address] Vanessa Gonzalez, DO) Mixed hyperlipidemia (Chronic) Essential hypertension (Chronic) Seizure disorder (Chronic) Tobacco dependence (Chronic) Takotsubo cardiomyopathy (Chronic) Allergies/Adverse Reactions: Allergies hydrochlorothiazide Adverse Reaction (Verified 03/21/20 11:45) PT UNSURE OF REACTION PATIENT STATES CAUSED HER TO BE WEAK WITH SYNCOPAL EPISODES Home Medications: Ambulatory Orders Medication Instructions Recorded Aspirin [Aspirin, Baby] 81 mg PO DAILY@0800 05/05/14 Magnesium Oxide [Mag-Ox 400] 400 mg PO BID 05/05/14 Nitroglycerin (INPATIENT USE) 0.4 mg SUBLINGUAL Q5M PRN #20 tab 05/05/14 [Nitrostat] Amitriptyline HCl 50 mg PO QHS 07/01/19 Calcium Citrate/Vitamin D3 1 tab PO BID 07/01/19 [Calcium Citrate - Vit D Caplet] Fluticasone Propionate 1 spray NASAL DAILY PRN PRN 07/01/19 Metoprolol Succinate [Toprol Xl] 200 mg PO DAILY 07/01/19 Multivit-Min/Iron/Folic/Lutein 1 tab PO DAILY 07/01/19 [Centrum Silver Women Tablet] Sertraline HCl [Zoloft] 50 mg PO DAILY 07/01/19 Amlodipine/Atorvastatin [Caduet 10 1 ea PO DAILY #30 tab 07/02/19 mg-40 mg Tablet] levothyroxine 25 mcg tablet 25 mcg PO DAILY 07/25/19 phenytoin sodium extended 100 mg 100 mg PO TID cap 07/25/19 capsule phenytoin sodium extended 30 mg 30 mg PO BID cap 07/25/19 capsule Tolterodine Tartrate [Detrol LA] 2 mg PO BID 11/26/19 Naproxen [Naprosyn] 500 mg PO BID PRN #20 tab 03/21/20 Penicillin V Potassium 500 mg PO 4X/DAY #28 tab 03/21/20 Maternal Family History: Family History (Last Reviewed 01/26/20 @ 14:05 by Laura Chapman) Mother Heart disease Family History: Heart Disease, Stroke Paternal Family History: Family History (Last Reviewed 01/26/20 @ 14:05 by Laura Chapman) Mother Heart disease Family History: - - from suicide, unknown medical history including cardiac history. Smoking Status: Heavy Smoker (>10/day) Tobacco Use: Cigarettes Physical Exam Vital Signs Temp Pulse Resp BP 96.9 F L 73 16 176/79 H 04/20/20 11:48 04/20/20 11:48 04/20/20 11:48 04/20/20 11:48 Assessment/Plan The patient appears to be tolerating hyperbaric oxygen therapy well, which will be continued as per the patient's medical plan. Treatment Course Number Number of HBO Treatments 20 Ordered Treatment Course Number 1 Treatment # 14 Chamber # 1 Chamber Type Monoplace Other - Detail Osteoradionecrosis (Specify Yes: JAW site in comment) Soft Tissue Radionecrosis ( Yes: Jaw specify site in comment) Treatment Plan EILEEN (Atmospheric Absolute) 2 Number of Minutes 90 Number of Air Breaks 2
--- NOTE | 2020-04-22 10:03 | PCM.HBO.PN ---
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 Progress: This represents the 14th such hyperbaric oxygen therapy session, of an anticipated 30 such treatments. Tolerance of hyperbaric oxygen therapy: Hyperbaric oxygen therapy was administered as per the facility's protocol. Patient tolerated HBO therapy well, without complaints or complications. The patient was treated for 90 minutes at 2.5 andrew, with two 5-minute air breaks. Upon emergence from the hyperbaric chamber, patient's vital signs remained stable. She was discharged in good condition. Past Medical History Chronic Problems (Last Updated 03/12/20 @ 18:[address] 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) Mixed hyperlipidemia (Chronic) Essential hypertension (Chronic) Seizure disorder (Chronic) Tobacco dependence (Chronic) Takotsubo cardiomyopathy (Chronic) Allergies/Adverse Reactions: Allergies hydrochlorothiazide Adverse Reaction (Verified 03/21/20 11:45) PT UNSURE OF REACTION PATIENT STATES CAUSED HER TO BE WEAK WITH SYNCOPAL EPISODES Home Medications: Ambulatory Orders Medication Instructions Recorded Aspirin [Aspirin, Baby] 81 mg PO DAILY@0800 05/05/14 Magnesium Oxide [Mag-Ox 400] 400 mg PO BID 05/05/14 Nitroglycerin (INPATIENT USE) 0.4 mg SUBLINGUAL Q5M PRN #20 tab 05/05/14 [Nitrostat] Amitriptyline HCl 50 mg PO QHS 07/01/19 Calcium Citrate/Vitamin D3 1 tab PO BID 07/01/19 [Calcium Citrate - Vit D Caplet] Fluticasone Propionate 1 spray NASAL DAILY PRN PRN 07/01/19 Metoprolol Succinate [Toprol Xl] 200 mg PO DAILY 07/01/19 Multivit-Min/Iron/Folic/Lutein 1 tab PO DAILY 07/01/19 [Centrum Silver Women Tablet] Sertraline HCl [Zoloft] 50 mg PO DAILY 07/01/19 Amlodipine/Atorvastatin [Caduet 10 1 ea PO DAILY #30 tab 07/02/19 mg-40 mg Tablet] levothyroxine 25 mcg tablet 25 mcg PO DAILY 07/25/19 phenytoin sodium extended 100 mg 100 mg PO TID cap 07/25/19 capsule phenytoin sodium extended 30 mg 30 mg PO BID cap 07/25/19 capsule Tolterodine Tartrate [Detrol LA] 2 mg PO BID 11/26/19 Naproxen [Naprosyn] 500 mg PO BID PRN #20 tab 03/21/20 Penicillin V Potassium 500 mg PO 4X/DAY #28 tab 03/21/20 Maternal Family History: Family History (Last Reviewed 01/26/20 @ 14:05 by Laura Chapman) Mother Heart disease Family History: Heart Disease, Stroke Paternal Family History: Family History (Last Reviewed 01/26/20 @ 14:05 by Laura Chapman) Mother Heart disease Family History: - - from suicide, unknown medical history including cardiac history. Smoking Status: Heavy Smoker (>10/day) Tobacco Use: Cigarettes Physical Exam Vital Signs Temp Pulse Resp BP 96.9 F L 73 16 176/79 H 04/20/20 11:48 04/20/20 11:48 04/20/20 11:48 04/20/20 11:48 General: Alert, Oriented x3, Cooperative, No apparent distress HEENT: Atraumatic, Normocephalic Lungs: Normal air movement Psych/Mental Status: Normal Affect Assessment/Plan The patient appears to be tolerating hyperbaric oxygen therapy well, which will be continued as per the patient's medical plan. Treatment Course Number Number of HBO Treatments 20 Ordered Treatment Course Number 1 Treatment # 14 Chamber # 1 Chamber Type Monoplace Other - Detail Osteoradionecrosis (Specify Yes: JAW site in comment) Soft Tissue Radionecrosis ( Yes: Jaw specify site in comment) Treatment Plan EILEEN (Atmospheric Absolute) 2 Number of Minutes 90 Number of Air Breaks 2
[2020-04-22 13:08] VITALS: BP 145/82; BP 179/92; PULSE 72; PULSE 76; RESP 18; TEMP 36.1; TEMP 36.4
[2020-04-23 12:10] VITALS: BP 145/85; BP 160/89; PULSE 72; PULSE 73; RESP 18; TEMP 36.3; TEMP 36.6
--- NOTE | 2020-04-23 15:52 | PCM.HBO.PN ---
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 Progress: This represents the 15th such hyperbaric oxygen therapy session, of an anticipated 30 such treatments. Tolerance of hyperbaric oxygen therapy: Hyperbaric oxygen therapy was administered as per the facility's protocol. Patient tolerated HBO therapy well, without complaints or complications. The patient was treated for 90 minutes at 2.5 andrew, with two 5-minute air breaks. Upon emergence from the hyperbaric chamber, patient's vital signs remained stable. She was discharged in good condition. Past Medical History Chronic Problems (Last Updated 03/12/20 @ 18:[address] 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) Mixed hyperlipidemia (Chronic) Essential hypertension (Chronic) Seizure disorder (Chronic) Tobacco dependence (Chronic) Takotsubo cardiomyopathy (Chronic) Allergies/Adverse Reactions: Allergies hydrochlorothiazide Adverse Reaction (Verified 03/21/20 11:45) PT UNSURE OF REACTION PATIENT STATES CAUSED HER TO BE WEAK WITH SYNCOPAL EPISODES Home Medications: Ambulatory Orders Medication Instructions Recorded Aspirin [Aspirin, Baby] 81 mg PO DAILY@0800 05/05/14 Magnesium Oxide [Mag-Ox 400] 400 mg PO BID 05/05/14 Nitroglycerin (INPATIENT USE) 0.4 mg SUBLINGUAL Q5M PRN #20 tab 05/05/14 [Nitrostat] Amitriptyline HCl 50 mg PO QHS 07/01/19 Calcium Citrate/Vitamin D3 1 tab PO BID 07/01/19 [Calcium Citrate - Vit D Caplet] Fluticasone Propionate 1 spray NASAL DAILY PRN PRN 07/01/19 Metoprolol Succinate [Toprol Xl] 200 mg PO DAILY 07/01/19 Multivit-Min/Iron/Folic/Lutein 1 tab PO DAILY 07/01/19 [Centrum Silver Women Tablet] Sertraline HCl [Zoloft] 50 mg PO DAILY 07/01/19 Amlodipine/Atorvastatin [Caduet 10 1 ea PO DAILY #30 tab 07/02/19 mg-40 mg Tablet] levothyroxine 25 mcg tablet 25 mcg PO DAILY 07/25/19 phenytoin sodium extended 100 mg 100 mg PO TID cap 07/25/19 capsule phenytoin sodium extended 30 mg 30 mg PO BID cap 07/25/19 capsule Tolterodine Tartrate [Detrol LA] 2 mg PO BID 11/26/19 Naproxen [Naprosyn] 500 mg PO BID PRN #20 tab 03/21/20 Penicillin V Potassium 500 mg PO 4X/DAY #28 tab 03/21/20 Maternal Family History: Family History (Last Reviewed 01/26/20 @ 14:05 by Laura Chapman) Mother Heart disease Family History: Heart Disease, Stroke Paternal Family History: Family History (Last Reviewed 01/26/20 @ 14:05 by Laura Chapman) Mother Heart disease Family History: - - from suicide, unknown medical history including cardiac history. Smoking Status: Heavy Smoker (>10/day) Tobacco Use: Cigarettes Alcohol: None Drugs: None Physical Exam Vital Signs Temp Pulse Resp BP 97.4 F L 73 18 160/89 H 04/23/20 12:10 04/23/20 12:10 04/23/20 12:10 04/23/20 12:10 General: Alert, Oriented x3, Cooperative, No apparent distress Psych/Mental Status: Normal Affect, Appropriate Assessment/Plan Active Problems (Last Updated 03/12/20 @ 18:[address] 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 Treatment Course Number Number of HBO Treatments 30 Ordered Treatment Course Number 1 Treatment # 17 Chamber # [id number] Chamber Type Monoplace Other - Detail Osteoradionecrosis (Specify Yes: JAW site in comment) Soft Tissue Radionecrosis ( Yes: Jaw specify site in comment) Treatment Plan EILEEN (Atmospheric Absolute) 2.5 Number of Minutes 90 Number of Air Breaks 2
--- NOTE | 2020-04-26 10:19 | PCM.HBO.PN ---
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 Progress: This represents the 18th such hyperbaric oxygen therapy session, of an anticipated 30 such treatments. Tolerance of hyperbaric oxygen therapy: Hyperbaric oxygen therapy was administered as per the facility's protocol. Patient tolerated HBO therapy well, without complaints or complications. The patient was treated for 90 minutes at 2.5 andrew, with two 5-minute air breaks. Upon emergence from the hyperbaric chamber, patient's vital signs remained stable. She was discharged in good condition. Past Medical History Chronic Problems (Last Updated 04/23/20 @ 15:[address] 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) Mixed hyperlipidemia (Chronic) Essential hypertension (Chronic) Seizure disorder (Chronic) Tobacco dependence (Chronic) Takotsubo cardiomyopathy (Chronic) Allergies/Adverse Reactions: Allergies hydrochlorothiazide Adverse Reaction (Verified 03/21/20 11:45) PT UNSURE OF REACTION PATIENT STATES CAUSED HER TO BE WEAK WITH SYNCOPAL EPISODES Home Medications: Ambulatory Orders Medication Instructions Recorded Aspirin [Aspirin, Baby] 81 mg PO DAILY@0800 05/05/14 Magnesium Oxide [Mag-Ox 400] 400 mg PO BID 05/05/14 Nitroglycerin (INPATIENT USE) 0.4 mg SUBLINGUAL Q5M PRN #20 tab 05/05/14 [Nitrostat] Amitriptyline HCl 50 mg PO QHS 07/01/19 Calcium Citrate/Vitamin D3 1 tab PO BID 07/01/19 [Calcium Citrate - Vit D Caplet] Fluticasone Propionate 1 spray NASAL DAILY PRN PRN 07/01/19 Metoprolol Succinate [Toprol Xl] 200 mg PO DAILY 07/01/19 Multivit-Min/Iron/Folic/Lutein 1 tab PO DAILY 07/01/19 [Centrum Silver Women Tablet] Sertraline HCl [Zoloft] 50 mg PO DAILY 07/01/19 Amlodipine/Atorvastatin [Caduet 10 1 ea PO DAILY #30 tab 07/02/19 mg-40 mg Tablet] levothyroxine 25 mcg tablet 25 mcg PO DAILY 07/25/19 phenytoin sodium extended 100 mg 100 mg PO TID cap 07/25/19 capsule phenytoin sodium extended 30 mg 30 mg PO BID cap 07/25/19 capsule Tolterodine Tartrate [Detrol LA] 2 mg PO BID 11/26/19 Naproxen [Naprosyn] 500 mg PO BID PRN #20 tab 03/21/20 Penicillin V Potassium 500 mg PO 4X/DAY #28 tab 03/21/20 Maternal Family History: Family History (Last Reviewed 01/26/20 @ 14:05 by Laura Chapman) Mother Heart disease Family History: Heart Disease, Stroke Paternal Family History: Family History (Last Reviewed 01/26/20 @ 14:05 by Laura Chapman) Mother Heart disease Family History: - - from suicide, unknown medical history including cardiac history. Smoking Status: Heavy Smoker (>10/day) Tobacco Use: Cigarettes Alcohol: None Drugs: None Physical Exam Vital Signs Temp Pulse Resp BP 97.4 F L 73 18 160/89 H 04/23/20 12:10 04/23/20 12:10 04/23/20 12:10 04/23/20 12:10 General: Alert, Oriented x3, Cooperative HEENT: Atraumatic, TM's Clear - bilateral ear tubes visible Lungs: Clear to auscultation, Normal air movement Cardiovascular: Regular rate, Regular Rhythm Psych/Mental Status: Normal Affect, Appropriate Assessment/Plan The patient appears to be tolerating hyperbaric oxygen therapy well, which will be continued as per the patient's medical plan. Treatment Course Number Number of HBO Treatments 30 Ordered Treatment Course Number 1 Treatment # 17 Chamber # [id number] Chamber Type Monoplace Other - Detail Osteoradionecrosis (Specify Yes: JAW site in comment) Soft Tissue Radionecrosis ( Yes: Jaw specify site in comment) Treatment Plan EILEEN (Atmospheric Absolute) 2.5 Number of Minutes 90 Number of Air Breaks 2 [id number]
[2020-04-26 11:52] VITALS: BP 101/66; BP 145/83; PULSE 77; PULSE 78; RESP 16; RESP 18; TEMP 36.8; TEMP 36.9
[2020-04-27 11:42] VITALS: BP 143/65; BP 183/83; PULSE 78; PULSE 84; RESP 16; RESP 18; TEMP 36.9
--- NOTE | 2020-04-27 14:27 | PCM.HBO.PN ---
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 Progress: This represents the 19th such hyperbaric oxygen therapy session, of an anticipated 30 such treatments. Tolerance of hyperbaric oxygen therapy: Hyperbaric oxygen therapy was administered as per the facility's protocol. Patient tolerated HBO therapy well, without complaints or complications. The patient was treated for 90 minutes at 2.5 andrew, with two 5-minute air breaks. The patient tolerated hyperbaric oxygen therapy well, without complaints or complications. Upon emergence from the hyperbaric chamber, patient's vital signs remained stable. She was discharged in good condition. Past Medical History Chronic Problems (Last Updated 04/23/20 @ 15:[address] 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) Mixed hyperlipidemia (Chronic) Essential hypertension (Chronic) Seizure disorder (Chronic) Tobacco dependence (Chronic) Takotsubo cardiomyopathy (Chronic) Allergies/Adverse Reactions: Allergies hydrochlorothiazide Adverse Reaction (Verified 03/21/20 11:45) PT UNSURE OF REACTION PATIENT STATES CAUSED HER TO BE WEAK WITH SYNCOPAL EPISODES Home Medications: Ambulatory Orders Medication Instructions Recorded Aspirin [Aspirin, Baby] 81 mg PO DAILY@0800 05/05/14 Magnesium Oxide [Mag-Ox 400] 400 mg PO BID 05/05/14 Nitroglycerin (INPATIENT USE) 0.4 mg SUBLINGUAL Q5M PRN #20 tab 05/05/14 [Nitrostat] Amitriptyline HCl 50 mg PO QHS 07/01/19 Calcium Citrate/Vitamin D3 1 tab PO BID 07/01/19 [Calcium Citrate - Vit D Caplet] Fluticasone Propionate 1 spray NASAL DAILY PRN PRN 07/01/19 Metoprolol Succinate [Toprol Xl] 200 mg PO DAILY 07/01/19 Multivit-Min/Iron/Folic/Lutein 1 tab PO DAILY 07/01/19 [Centrum Silver Women Tablet] Sertraline HCl [Zoloft] 50 mg PO DAILY 07/01/19 Amlodipine/Atorvastatin [Caduet 10 1 ea PO DAILY #30 tab 07/02/19 mg-40 mg Tablet] levothyroxine 25 mcg tablet 25 mcg PO DAILY 07/25/19 phenytoin sodium extended 100 mg 100 mg PO TID cap 07/25/19 capsule phenytoin sodium extended 30 mg 30 mg PO BID cap 07/25/19 capsule Tolterodine Tartrate [Detrol LA] 2 mg PO BID 11/26/19 Naproxen [Naprosyn] 500 mg PO BID PRN #20 tab 03/21/20 Penicillin V Potassium 500 mg PO 4X/DAY #28 tab 03/21/20 Maternal Family History: Family History (Last Reviewed 01/26/20 @ 14:05 by Laura Chapman) Mother Heart disease Family History: Heart Disease, Stroke Paternal Family History: Family History (Last Reviewed 01/26/20 @ 14:05 by Laura Chapman) Mother Heart disease Family History: - - from suicide, unknown medical history including cardiac history. Smoking Status: Heavy Smoker (>10/day) Tobacco Use: Cigarettes Alcohol: None Drugs: None Physical Exam Vital Signs Temp Pulse Resp BP 98.5 F 84 18 183/83 H 04/27/20 11:42 04/27/20 11:42 04/27/20 11:42 04/27/20 11:42 General: Alert, Oriented x3, Cooperative, No apparent distress, Well developed, Well nourished HEENT: Atraumatic, PERRLA, EOMI, Normocephalic Lungs: Normal air movement Psych/Mental Status: Normal Affect, Appropriate, Alert and oriented to time, place, person, mood and affect Assessment/Plan The patient appears to be tolerating hyperbaric oxygen therapy well, which will be continued as per the patient's medical plan. Treatment Course Number Number of HBO Treatments 30 Ordered Treatment Course Number 1 Treatment # 19 Chamber # 1 Chamber Type Monoplace Other - Detail Osteoradionecrosis (Specify Yes: JAW site in comment) Soft Tissue Radionecrosis ( Yes: Jaw specify site in comment) Treatment Plan EILEEN (Atmospheric Absolute) 2 Number of Minutes 90 Number of Air Breaks 2
--- NOTE | 2020-04-29 09:11 | PCM.HBO.PN ---
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 Progress: This represents the 19th such hyperbaric oxygen therapy session, of an anticipated 30 such treatments. Tolerance of hyperbaric oxygen therapy: Hyperbaric oxygen therapy was administered as per the facility's protocol. Patient tolerated HBO therapy well, without complaints or complications. The patient was treated for 90 minutes at 2.5 andrew, with two 5-minute air breaks. Upon emergence from the hyperbaric chamber, patient's vital signs remained stable. She was discharged in good condition. Past Medical History Chronic Problems (Last Updated 04/23/20 @ 15:[address] 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) Mixed hyperlipidemia (Chronic) Essential hypertension (Chronic) Seizure disorder (Chronic) Tobacco dependence (Chronic) Takotsubo cardiomyopathy (Chronic) Allergies/Adverse Reactions: Allergies hydrochlorothiazide Adverse Reaction (Verified 03/21/20 11:45) PT UNSURE OF REACTION PATIENT STATES CAUSED HER TO BE WEAK WITH SYNCOPAL EPISODES Home Medications: Ambulatory Orders Medication Instructions Recorded Aspirin [Aspirin, Baby] 81 mg PO DAILY@0800 05/05/14 Magnesium Oxide [Mag-Ox 400] 400 mg PO BID 05/05/14 Nitroglycerin (INPATIENT USE) 0.4 mg SUBLINGUAL Q5M PRN #20 tab 05/05/14 [Nitrostat] Amitriptyline HCl 50 mg PO QHS 07/01/19 Calcium Citrate/Vitamin D3 1 tab PO BID 07/01/19 [Calcium Citrate - Vit D Caplet] Fluticasone Propionate 1 spray NASAL DAILY PRN PRN 07/01/19 Metoprolol Succinate [Toprol Xl] 200 mg PO DAILY 07/01/19 Multivit-Min/Iron/Folic/Lutein 1 tab PO DAILY 07/01/19 [Centrum Silver Women Tablet] Sertraline HCl [Zoloft] 50 mg PO DAILY 07/01/19 Amlodipine/Atorvastatin [Caduet 10 1 ea PO DAILY #30 tab 07/02/19 mg-40 mg Tablet] levothyroxine 25 mcg tablet 25 mcg PO DAILY 07/25/19 phenytoin sodium extended 100 mg 100 mg PO TID cap 07/25/19 capsule phenytoin sodium extended 30 mg 30 mg PO BID cap 07/25/19 capsule Tolterodine Tartrate [Detrol LA] 2 mg PO BID 11/26/19 Naproxen [Naprosyn] 500 mg PO BID PRN #20 tab 03/21/20 Penicillin V Potassium 500 mg PO 4X/DAY #28 tab 03/21/20 Maternal Family History: Family History (Last Reviewed 01/26/20 @ 14:05 by Laura Chapman) Mother Heart disease Family History: Heart Disease, Stroke Paternal Family History: Family History (Last Reviewed 01/26/20 @ 14:05 by Laura Chapman) Mother Heart disease Family History: - - from suicide, unknown medical history including cardiac history. Smoking Status: Heavy Smoker (>10/day) Tobacco Use: Cigarettes Alcohol: None Drugs: None Physical Exam Vital Signs Temp Pulse Resp BP 98.5 F 84 18 183/83 H 04/27/20 11:42 04/27/20 11:42 04/27/20 11:42 04/27/20 11:42 General: Alert, Oriented x3, Cooperative, No apparent distress HEENT: Atraumatic, Normocephalic Lungs: Normal air movement Psych/Mental Status: Normal Affect Assessment/Plan The patient appears to be tolerating hyperbaric oxygen therapy well, which will be continued as per the patient's medical plan. Treatment Course Number Number of HBO Treatments 30 Ordered Treatment Course Number 1 Treatment # 19 Chamber # 1 Chamber Type Monoplace Other - Detail Osteoradionecrosis (Specify Yes: JAW site in comment) Soft Tissue Radionecrosis ( Yes: Jaw specify site in comment) Treatment Plan EILEEN (Atmospheric Absolute) 2 Number of Minutes 90 Number of Air Breaks 2 HBO Supervision
[2020-04-29 09:31] VITALS: BP 177/96; BP 185/85; PULSE 73; PULSE 77; RESP 18; TEMP 36.4; TEMP 36.6
== END 2020-04-30 23:59 ==
LOC: WC 09:00
PROVIDERS: PCP Family Medicine; Visit Provider Family Medicine
DX: M27.2 Inflammatory conditions of jaws (principal); Y84.2 Radiological procedure and radiotherapy as the cause of abnormal reaction of the patient, or of later complication, without mention of misadventure at the time of the procedure; E78.2 Mixed hyperlipidemia; I10 Essential (primary) hypertension; I51.81 Takotsubo syndrome; G40.909 Epilepsy, unspecified, not intractable, without status epilepticus; Z79.899 Other long term (current) drug therapy; F17.210 Nicotine dependence, cigarettes, uncomplicated; C06.9 Malignant neoplasm of mouth, unspecified; Z79.82 Long term (current) use of aspirin
CPT/HCPCS: 99183; G0277

== ENCOUNTER 2020-05-07 08:30 | Outpatient (RCR) | payer MEDICARE, SELFPAY ==
[2020-05-06 09:14] VITALS: BP 115/76; BP 162/97; PULSE 78; PULSE 93; RESP 16; TEMP 36; TEMP 36.4
--- NOTE | 2020-05-06 10:09 | PCM.HBO.PN ---
History of Present Illness Date of Service: 05/06/20 Presenting Chief Complaint: Osteoradionecrosis/radiation injury of the jaw due to prior radiation for oral cancer. 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 Progress: This represents the 21st such hyperbaric oxygen therapy session, of an anticipated 30 such treatments. Tolerance of hyperbaric oxygen therapy: Hyperbaric oxygen therapy was administered as per the facility's protocol. Patient tolerated HBO therapy well, without complaints or complications. The patient was treated for 90 minutes at 2.5 andrew, with two 5-minute air breaks. Upon emergence from the hyperbaric chamber, patient's vital signs remained stable. She was discharged in good condition. Past Medical History Chronic Problems (Last Updated 04/23/20 @ 15:[address] 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) Mixed hyperlipidemia (Chronic) Essential hypertension (Chronic) Seizure disorder (Chronic) Tobacco dependence (Chronic) Takotsubo cardiomyopathy (Chronic) Allergies/Adverse Reactions: Allergies hydrochlorothiazide Adverse Reaction (Verified 03/21/20 11:45) PT UNSURE OF REACTION PATIENT STATES CAUSED HER TO BE WEAK WITH SYNCOPAL EPISODES Home Medications: Ambulatory Orders Medication Instructions Recorded Aspirin [Aspirin, Baby] 81 mg PO DAILY@0800 05/05/14 Magnesium Oxide [Mag-Ox 400] 400 mg PO BID 05/05/14 Nitroglycerin (INPATIENT USE) 0.4 mg SUBLINGUAL Q5M PRN #20 tab 05/05/14 [Nitrostat] Amitriptyline HCl 50 mg PO QHS 07/01/19 Calcium Citrate/Vitamin D3 1 tab PO BID 07/01/19 [Calcium Citrate - Vit D Caplet] Fluticasone Propionate 1 spray NASAL DAILY PRN PRN 07/01/19 Metoprolol Succinate [Toprol Xl] 200 mg PO DAILY 07/01/19 Multivit-Min/Iron/Folic/Lutein 1 tab PO DAILY 07/01/19 [Centrum Silver Women Tablet] Sertraline HCl [Zoloft] 50 mg PO DAILY 07/01/19 Amlodipine/Atorvastatin [Caduet 10 1 ea PO DAILY #30 tab 07/02/19 mg-40 mg Tablet] levothyroxine 25 mcg tablet 25 mcg PO DAILY 07/25/19 phenytoin sodium extended 100 mg 100 mg PO TID cap 07/25/19 capsule phenytoin sodium extended 30 mg 30 mg PO BID cap 07/25/19 capsule Tolterodine Tartrate [Detrol LA] 2 mg PO BID 11/26/19 Naproxen [Naprosyn] 500 mg PO BID PRN #20 tab 03/21/20 Penicillin V Potassium 500 mg PO 4X/DAY #28 tab 03/21/20 Maternal Family History: Family History (Last Reviewed 01/26/20 @ 14:05 by Laura Chapman) Mother Heart disease Family History: Heart Disease, Stroke Paternal Family History: Family History (Last Reviewed 01/26/20 @ 14:05 by Laura Chapman) Mother Heart disease Family History: - - from suicide, unknown medical history including cardiac history. Smoking Status: Heavy Smoker (>10/day) Physical Exam Vital Signs Temp Pulse Resp BP 96.8 F L 93 16 115/76 05/06/20 09:14 05/06/20 09:14 05/06/20 09:14 05/06/20 09:14 General: Alert, Oriented x3, Cooperative, No apparent distress HEENT: Atraumatic, TM's Clear Lungs: Clear to auscultation, Normal air movement Cardiovascular: Regular rate, Regular Rhythm Psych/Mental Status: Normal Affect, Appropriate, Alert and oriented to time, place, person, mood and affect Assessment/Plan Treatment Course Number Number of HBO Treatments 30 Ordered Treatment Course Number 1 Treatment # 21 Chamber # [id number] Chamber Type Monoplace Other - Detail Osteoradionecrosis (Specify Yes: Jaw site in comment) Soft Tissue Radionecrosis ( Yes: Jaw specify site in comment) Treatment Plan EILEEN (Atmospheric Absolute) 2.5 Number of Minutes 90 Number of Air Breaks 2 The patient appears to be tolerating hyperbaric oxygen therapy well, which will be continued as per the patient's medical plan.
--- NOTE | 2020-05-07 09:18 | PCM.HBO.PN ---
History of Present Illness Date of Service: 05/07/20 Presenting Chief Complaint: Osteoradionecrosis/radiation injury of the jaw due to prior radiation for oral cancer. 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 Progress: This represents the 22nd such hyperbaric oxygen therapy session, of an anticipated 30 such treatments. Tolerance of hyperbaric oxygen therapy: Hyperbaric oxygen therapy was administered as per the facility's protocol. Patient tolerated HBO therapy well, without complaints or complications. The patient was treated for 90 minutes at 2.5 andrew, with two 5-minute air breaks. Upon emergence from the hyperbaric chamber, patient's vital signs remained stable. She was discharged in good condition. Past Medical History Chronic Problems (Last Updated 04/23/20 @ 15:[address] 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) Mixed hyperlipidemia (Chronic) Essential hypertension (Chronic) Seizure disorder (Chronic) Tobacco dependence (Chronic) Takotsubo cardiomyopathy (Chronic) Allergies/Adverse Reactions: Allergies hydrochlorothiazide Adverse Reaction (Verified 03/21/20 11:45) PT UNSURE OF REACTION PATIENT STATES CAUSED HER TO BE WEAK WITH SYNCOPAL EPISODES Home Medications: Ambulatory Orders Medication Instructions Recorded Aspirin [Aspirin, Baby] 81 mg PO DAILY@0800 05/05/14 Magnesium Oxide [Mag-Ox 400] 400 mg PO BID 05/05/14 Nitroglycerin (INPATIENT USE) 0.4 mg SUBLINGUAL Q5M PRN #20 tab 05/05/14 [Nitrostat] Amitriptyline HCl 50 mg PO QHS 07/01/19 Calcium Citrate/Vitamin D3 1 tab PO BID 07/01/19 [Calcium Citrate - Vit D Caplet] Fluticasone Propionate 1 spray NASAL DAILY PRN PRN 07/01/19 Metoprolol Succinate [Toprol Xl] 200 mg PO DAILY 07/01/19 Multivit-Min/Iron/Folic/Lutein 1 tab PO DAILY 07/01/19 [Centrum Silver Women Tablet] Sertraline HCl [Zoloft] 50 mg PO DAILY 07/01/19 Amlodipine/Atorvastatin [Caduet 10 1 ea PO DAILY #30 tab 07/02/19 mg-40 mg Tablet] levothyroxine 25 mcg tablet 25 mcg PO DAILY 07/25/19 phenytoin sodium extended 100 mg 100 mg PO TID cap 07/25/19 capsule phenytoin sodium extended 30 mg 30 mg PO BID cap 07/25/19 capsule Tolterodine Tartrate [Detrol LA] 2 mg PO BID 11/26/19 Naproxen [Naprosyn] 500 mg PO BID PRN #20 tab 03/21/20 Penicillin V Potassium 500 mg PO 4X/DAY #28 tab 03/21/20 Maternal Family History: Family History (Last Reviewed 01/26/20 @ 14:05 by Laura Chapman) Mother Heart disease Family History: Heart Disease, Stroke Paternal Family History: Family History (Last Reviewed 01/26/20 @ 14:05 by Laura Chapman) Mother Heart disease Family History: - - from suicide, unknown medical history including cardiac history. Smoking Status: Heavy Smoker (>10/day) Physical Exam Vital Signs Temp Pulse Resp BP 96.8 F L 93 16 115/76 05/06/20 09:14 05/06/20 09:14 05/06/20 09:14 05/06/20 09:14 General: Alert, Oriented x3, Cooperative, No apparent distress HEENT: Atraumatic, TM's Clear - tubes intact bilaterally Lungs: Clear to auscultation, Normal air movement Cardiovascular: Regular rate, Regular Rhythm Psych/Mental Status: Normal Affect, Appropriate, Alert and oriented to time, place, person, mood and affect Assessment/Plan Treatment Course Number Number of HBO Treatments 30 Ordered Treatment Course Number 1 Treatment # 22 Chamber # [id number] Chamber Type Monoplace Other - Detail Osteoradionecrosis (Specify Yes: Jaw site in comment) Soft Tissue Radionecrosis ( Yes: Jaw specify site in comment) Treatment Plan EILEEN (Atmospheric Absolute) 2.5 Number of Minutes 90 Number of Air Breaks 2 She is tolerating therapy well which will be continued as per her medical treatment plan.
[2020-05-07 09:29] VITALS: BP 153/77; BP 159/91; PULSE 75; PULSE 77; RESP 16; TEMP 36.7; TEMP 36.8
== END 2020-05-31 23:59 ==
LOC: WC 08:30
PROVIDERS: PCP Family Medicine; Visit Provider Internal Medicine
DX: M27.2 Inflammatory conditions of jaws (principal); Y84.2 Radiological procedure and radiotherapy as the cause of abnormal reaction of the patient, or of later complication, without mention of misadventure at the time of the procedure; C06.9 Malignant neoplasm of mouth, unspecified; E78.2 Mixed hyperlipidemia; I10 Essential (primary) hypertension; I51.81 Takotsubo syndrome; G40.909 Epilepsy, unspecified, not intractable, without status epilepticus; Z79.899 Other long term (current) drug therapy; F17.200 Nicotine dependence, unspecified, uncomplicated

== ENCOUNTER 2020-05-09 10:00 | Emergency (ER) | payer MEDICARE, SELFPAY ==
[2020-05-09 10:01] VITALS: BP 134/77; PULSE 74; RESP 16; TEMP 36.7; O2SAT 92; BMI 19.3
--- NOTE | 2020-05-09 10:05 | RAD_ITS ---
STUDY: X-RAY - RIGHT SHOULDER REASON FOR EXAM: Female, 64 years old. Fall last night, right shoulder pain. TECHNIQUE: 3 view(s) of the shoulder. COMPARISON: None. FINDINGS: Normal glenohumeral articulation. Normal acromioclavicular joint. Normal acromion. Acute nondisplaced oblique fracture of the right humeral neck. The soft tissue structures are unremarkable. Normal visualized pulmonary apex. RAD/Shoulder min 2 Views IMPRESSION: Acute nondisplaced oblique fracture the right humeral neck. Electronically Signed: Tahir Storey MD at 10:31 EDT Tel , Service support ,
[2020-05-09 10:07] VITALS: O2SAT 92
--- NOTE | 2020-05-09 10:11 | ED.VIS.FALL ---
History of Present Illness Chief Complaint: Fall Narrative: Patient presenting for evaluation secondary to mechanical fall. Patient reports that she was taking the dog out last night, and suffered a trip and fall injury where she fell on her right shoulder. She reports that when she fell, she did not hit her head but when she rolled over and try to get up she got her hair stuck in 1 of the sticky mouse traps. She denies that she lost consciousness. She denies any neck pain. She has a moderate to severe amount of sharp pain in her right arm and shoulder that is worse with movement and palpation. She denies any numbness or weakness. She denies any sort of anticoagulants. Review of systems otherwise negative. Past Medical History - Allergies and Home Meds Allergies/Adverse Reactions: Allergies No Known Allergies Allergy (Verified 05/09/20 10:07) Primary Care Physician: Tushar Block MD [Primary Care Provider] - Prior records reviewed: Yes Past Medical History: - - Coronary artery disease, hypertension, seizure Surgical History: - - Partial hysterectomy, breast cyst removal. Smoking Status: Current every day smoker Alcohol: None Drugs: None - Family History Maternal Family History: Family History (Last Reviewed 01/26/20 @ 14:05 by Laura Chapman) Mother Heart disease Family History: Reports: Heart Disease, Stroke Paternal Family History: Family History (Last Reviewed 01/26/20 @ 14:05 by Laura Chapman) Mother Heart disease Family History: Reports: - - from suicide, unknown medical history including cardiac history. Review of Systems All systems negative except as indicated General: Denies: Chills, Fever, Sweats Eyes: Denies: Visual changes - bilaterally, Diplopia ENT: Denies: Rhinorrhea, Sore throat Cardiovascular: Denies: Chest pain, Palpitations Respiratory: Denies: Dyspnea, Cough, Dyspnea on exertion Gastrointestinal: Denies: Abdominal pain, Nausea, Vomiting, Diarrhea, Melena, Hematochezia Genitourinary: Denies: Dysuria, Hematuria, Frequency Musculoskeletal: Reports: Extremity Pain Skin: Denies: Rash, Wounds Neurological: Denies: Headache, Weakness, Numbness Physical Exam Vital Signs/Narrative: Vital Signs Temp Pulse Resp BP Pulse Ox 05/09/20 10:07 92 05/09/20 10:01 98.1 F 74 16 134/77 H 92 Inital Vital Signs reviewed: Yes General: Cachectic, - - No acute distress Head: Normocephalic, Atraumatic Eyes: Perrl, EOMI. Negative for: Pale conjunctiva Neck: Nontender, Full ROM Cardiovascular: Regular rate, Regular rhythm, No murmurs Respiratory: No distress, CTA bilaterally, Chest nontender Abdomen: Soft, Nontender, Nondistended, Normal bowel sounds Back: Nontender Extremeties: Examination of the patient's right arm shows no pain of the hand wrist forearm or elbow. There is pain with range of motion and palpation of the proximal humerus without any obvious deformity. Clavicle is intact and nontender. No evidence of dislocation. Limited range of motion secondary to pain. Skin: Normal color, No rash Neurological: Alert, Oriented x3, Cranial nerves II-XII grossly intact, Normal Strength, Normal Sensation Psychological: Normal affect Diagnostic/Tx/Re-eval Clinical Impression(s) from Imaging Studies Shoulder X-Ray 05/09/20 10:05 IMPRESSION: Acute nondisplaced oblique fracture the right humeral neck. Electronically Signed: Tahir Storey MD at 10:31 EDT Tel , Service support , - Medical Decision Making Patient presented with a mechanical fall. Primary and secondary surveys showed only injuries to the patient's right shoulder. Radiographs by my personal review as well as radiology show a nondisplaced proximal humerus fracture. Patient be placed in a sling and swath. Patient will follow-up with orthopedics transition coach. ED Disposition - Plan for ED Patient: Disposition: Home or Assisted Living Diagnosis: Proximal humerus fracture Instructions: ED Fracture Upper Extremity Referrals: Rafael Mock MD [STAFF PHYSICIAN] - 1-2 Weeks
[2020-05-09 11:02] VITALS: RESP 18
== END 2020-05-09 11:03 | disposition home or self-care (01) ==
PROVIDERS: Emergency Provider Emergency Medicine; PCP Family Medicine
DX: S42.214A Unspecified nondisplaced fracture of surgical neck of right humerus, initial encounter for closed fracture (principal); W01.0XXA Fall on same level from slipping, tripping and stumbling without subsequent striking against object, initial encounter; Y93.89 Activity, other specified; Y92.009 Unspecified place in unspecified non-institutional (private) residence as the place of occurrence of the external cause; I25.10 Atherosclerotic heart disease of native coronary artery without angina pectoris; I10 Essential (primary) hypertension; G40.909 Epilepsy, unspecified, not intractable, without status epilepticus; F17.200 Nicotine dependence, unspecified, uncomplicated; Z79.82 Long term (current) use of aspirin; Z79.899 Other long term (current) drug therapy
CPT/HCPCS: 73030; 99284

== ENCOUNTER 2020-05-14 08:30 | Outpatient (RCR) | payer MEDICARE, SELFPAY ==
[2020-05-01 00:17] VITALS: BP 185/85; PULSE 73; RESP 18; TEMP 36.4
== END 2020-05-31 23:59 ==
LOC: WC 08:30
PROVIDERS: PCP Family Medicine; Visit Provider Family Medicine
DX: M27.2 Inflammatory conditions of jaws (principal); Y84.2 Radiological procedure and radiotherapy as the cause of abnormal reaction of the patient, or of later complication, without mention of misadventure at the time of the procedure; I10 Essential (primary) hypertension; E78.2 Mixed hyperlipidemia; G40.909 Epilepsy, unspecified, not intractable, without status epilepticus; F17.200 Nicotine dependence, unspecified, uncomplicated; Z79.899 Other long term (current) drug therapy; C06.9 Malignant neoplasm of mouth, unspecified
CPT/HCPCS: 99183; G0277